=== PATIENT | female | born 1940 | race Caucasian/White ===

== ENCOUNTER 2016-08-07 00:21 | Inpatient (IN) | payer MEDICARE ==
[2016-08-07 00:22] VITALS: BMI 28.3
[2016-08-07] MEDS ORDERED: Sodium Chloride 0.9% 1,000 ML IV ONE ×3 (01:39→05:25)
--- NOTE | 2016-08-07 01:40 | C.PDOC ---
History Of Present Illness Pt presents with severe abdominal pain. After eating, she started to vomit, and "felt something Pop" in her abdomen and started to have sever pain. nausea and vomiting. Time Seen by Provider: 08/07/16 01:39 Chief Complaint (Nursing): Abdominal Pain History Per: Patient, Family History/Exam Limitations: no limitations Onset/Duration Of Symptoms: Hrs Current Symptoms Are (Timing): Worse Context: Other Severity: Severe Pain Scale Rating Of: 8 Location Of Pain/Discomfort: Diffuse Radiation Of Pain To:: Back Quality Of Discomfort: Sharp, "Pain" Associated Symptoms: Nausea, Vomiting. denies: Fever, Chills Exacerbating Factors: None Alleviating Factors: None Last Bowel Movement: Yesterday Recent travel outside of the [place]: No Additional History Per: Family Abnormal Vaginal Bleeding: No Past Medical History Reviewed: Historical Data, Nursing Documentation, Vital Signs Vital Signs: Last Vital Signs Temp 98.4 F 08/07/16 02:00 Pulse 83 08/07/16 03:30 Resp 28 H 08/07/16 03:30 BP 108/73 08/07/16 03:30 Pulse Ox 98 08/07/16 05:31 - Medical History PMH: HTN, Hypercholesterolemia Surgical History: Appendectomy Family History: States: No Known Family Hx - Social History Hx Alcohol Use: Yes Hx Substance Use: No - Immunization History Hx Tetanus Toxoid Vaccination: No Hx Influenza Vaccination: Yes Hx Pneumococcal Vaccination: No Review Of Systems Constitutional: Negative for: Fever, Chills Eyes: Negative for: Vision Change ENT: Negative for: Throat Pain Cardiovascular: Negative for: Chest Pain, Palpitations Respiratory: Negative for: Shortness of Breath Gastrointestinal: Positive for: Nausea, Vomiting, Abdominal Pain Genitourinary: Negative for: Dysuria Musculoskeletal: Negative for: Back Pain Skin: Negative for: Rash, Lesions, Jaundice, Bruising Neurological: Negative for: Weakness Psych: Negative for: Anxiety Physical Exam - Physical Exam Appears: In Acute Distress Skin: Pale Head: Normacephalic Eye(s): bilateral: Normal Inspection Oral Mucosa: Dry Neck: Trachea Midline, Supple Chest: Symmetrical Cardiovascular: Rhythm Regular Respiratory: No Rales, No Rhonchi, No Wheezing Gastrointestinal/Abdominal: Bowel Sounds (dull), Tenderness (diffuse), Guarding , Rebound Rectal: Deferred Back: No CVA Tenderness Extremity: Normal ROM Extremity: Bilateral: Atraumatic, Normal Color And Temperature, Normal ROM Neurological/Psych: Oriented x3, Normal Speech, Normal Cognition ED Course And Treatment - Laboratory Results Result Diagrams: 08/07/16 03:57 08/07/16 01:57 ECG: Interpreted By Me, Viewed By Me ECG Rhythm: Sinus Rhythm (72), Nonspecific Changes O2 Sat by Pulse Oximetry: 98 Pulse Ox Interpretation: Normal - Radiology CXR: Interpreted by Me, Viewed By Me Progress Note: blood work, ivf, morphine, ct scan. 4:15 spoke with surgical garment fitter. will come and see the pt. have call out to dr larios. spoke with dr crane- admit to hospitalist service. spoke with pt and family(hipaa compliant) re diagnosis Critical Care Time - Critical Care Note Total Time (in mins): 35 Documented critical care: time excludes all time spent performing seperately billable procedures. Disposition Discussed With DrRafael: Oleg Russo Comment: accepted the pt on his service and took over the care at 5:15 AM Doctor Will See Patient In The: ED Counseled Patient/Family Regarding: Studies Performed, Diagnosis - Disposition Disposition: HOSPITALIZED Disposition Time: 01:39 Condition: CRITICAL - POA Present On Arrival: Poor Glycemic Control - Clinical Impression Clinical Impression: Abdominal pain, Nausea, Vomiting, Perforated bowel Decision To Admit - Pt Status Changed To: Hospital Disposition Of: Inpatient - Admit Certification Admit to Inpatient:: After my assessment, the patient will require hospitalization for at least two midnights. This is because of the severity of symptoms shown, intensity of services needed, and/or the medical risk in this patient being treated as an outpatient. - InPatient: Physician Admission Certification:: After my assessment, the patient will require hospitalization for at least two midnights. This is because of the severity of symptoms shown, intensity of services needed, and/or the medical risk in this patient being treated as an outpatient. - . Bed Request Type: ICU Admitting Physician: Oleg Russo Patient Diagnosis: Abdominal pain, Nausea, Vomiting, Perforated bowel
[2016-08-07] MEDS ORDERED: Morphine 4 MG/ML VIAL ONE (01:47)
[2016-08-07] MEDS ORDERED: Sodium Chloride 0.9% 1,000 ML ONE (01:48)
[2016-08-07 02:05] LABS: VENOUS BLOOD GAS BASE EXCESS -1.5 mmol/L (0.0-2.0); VENOUS BLOOD GAS PCO2 25 mmHg (40-60); VENOUS BLOOD PH 7.51 (7.32-7.43)
[2016-08-07] MEDS ORDERED: Piperacillin/Tazobact 3.375 gm 100 ML IVPB STA (02:07)
[2016-08-07] MEDS ORDERED: HYDROmorphone 1 mg/ml ISec IVP STA ×2 (02:09→03:29)
[2016-08-07 02:11] LABS: CHLORIDE 107 mmol/L (98-107)
[2016-08-07 02:12] LABS: POTASSIUM 4.7 mmol/L (3.6-5.2); SODIUM 139 mmol/L (132-148)
[2016-08-07] MEDS ORDERED: HYDROmorphone 1 mg/ml ISec ONE (02:12)
[2016-08-07 02:14] LABS: ALB/GLOB RATIO 1.4 (1.0-2.1); ALKALINE PHOSPHATASE 92 U/L (38-126); ALT/SGPT 17 U/L (9-52); AST/SGOT 56 U/L (14-36); BILIRUBIN,TOTAL 2.4 mg/dL (0.2-1.3); BLOOD UREA NITROGEN 45 mg/dL (7-17); CARBON DIOXIDE 19 mmol/L (22-30); GFR AFRICAN-AMERICAN > 60; GLUCOSE,RANDOM 190 mg/dL (65-105)
[2016-08-07 02:15] LABS: CALCIUM 9.7 mg/dl (8.6-10.4)
[2016-08-07] MEDS ORDERED: Iodixanol 320 MG/ML 100 ML BOTTLE IV ONE (02:46)
[2016-08-07 04:03] LABS: BASO % 0.5 % (0.0-2.0); EOS % 0.4 % (0.0-4.0); HEMATOCRIT 46.3 % (34.0-47.0); LYMPH # 0.4 K/uL (1.0-4.3); LYMPH % 21.4 % (20.0-40.0); MEAN CELL VOLUME 94.5 fL (81.0-99.0); MEAN CORPUSCULAR HEMOGLOBIN 31.1 pg (27.0-31.0); MEAN CORPUSCULAR HGB CONC 32.9 g/dL (33.0-37.0); MEAN PLATELET VOLUME 7.5 fL (7.2-11.7); MONO # 0.1 K/uL (0.0-0.8); MONO % 6.9 % (0.0-10.0); NRBC % 0.2 % (0.0-2.0)
[2016-08-07] MEDS ORDERED: Vancomycin 1 GM 1 GM/250 ML BAG IVPB SCH (04:15)
--- NOTE | 2016-08-07 05:04 | CP.PCM.CON ---
<Kendy Klein - Last Filed: 08/07/16 04:56> History of Present Illness - History of Present Illness History of Present Illness: Surgery Consult: Dr. Kenney Pt is a 76F with PMHx of HTN & HLD who presents to with acute abdominal pain that started earlier last night. Pt states she was feeling nauseous after dinner and began to throw up. She attributed her symptoms to possible constipation which she suffers from intermittently. She decided to take some prune juice which did not help, and she felt herself straining to move her bowels. She states she felt a pop and started having severe abdominal pain in her lower abdomen, which became generalized very quickly. She states the pain was 10/10 and has remained at that level. In the ER a CT abdomen/pelvis was obtained and shows free air with probable perforated viscous. Surgery consulted to evaluate. Currently, pt is in bed trying to find a comfortable position. Continues to have severe abdominal pain but denies further episodes of N/V. Denies F/C, chest pain or SOB. PMHx: HTN, HLD PSHx: hysterectomy, cataract surgery SocialHx: former social smoker, denies EtOH/drugs NKDA Review of Systems - Review of Systems All systems: reviewed and no additional remarkable complaints except (as per HPI ) Past Patient History - Infectious Disease Hx of Infectious Diseases: None - Past Medical History & Family History Past Medical History?: Yes - Past Social History Smoking Status: Never Smoked - CARDIAC Hx Hypercholesterolemia: Yes Hx Hypertension: Yes - HEENT Hx HEENT Problems: Yes Hx Glaucoma: Yes (BOTH EYES) - INTEGUMENTARY Hx Dermatological Problems: Yes - PSYCHIATRIC Hx Substance Use: No - SURGICAL HISTORY Hx Appendectomy: Yes - ANESTHESIA Hx Anesthesia: Yes Hx Anesthesia Reactions: No Hx Malignant Hyperthermia: No Meds Allergies/Adverse Reactions: Allergies Allergy/AdvReac Type Severity Reaction Status Date / Time No Known Allergies Allergy Verified 08/07/16 08:20 - Medications Medications: Current Medications Vancomycin HCl (Vancomycin 1gm In Normal Saline Addvantage) 1 gm in 250 mls @ 166.667 mls/hr IVPB STAT MARINA Physical Exam - Constitutional Appears: In Acute Distress - Head Exam Head Exam: ATRAUMATIC, NORMOCEPHALIC - ENT Exam ENT Exam: Mucous Membranes Dry - Respiratory Exam Respiratory Exam: NORMAL BREATHING PATTERN - Cardiovascular Exam Cardiovascular Exam: RRR - GI/Abdominal Exam GI & Abdominal Exam: Distended, Firm, Guarding, Tenderness (generalized ) - Rectal Exam Rectal Exam: Deferred - Extremities Exam Extremities exam: Negative for: tenderness - Neurological Exam Neurological exam: Alert, Oriented x3 - Skin Skin Exam: Dry, Intact, Warm Results - Vital Signs Recent Vital Signs: Last Vital Signs Temp 98.4 F 08/07/16 02:00 Pulse 73 08/07/16 02:00 Resp 24 08/07/16 02:00 BP 100/61 08/07/16 02:00 Pulse Ox 98 08/07/16 04:20 - Labs Result Diagrams: 08/07/16 03:57 08/07/16 01:57 Labs: Laboratory Results - last 24 hr 08/07/16 08/07/16 08/07/16 01:57 01:57 02:00 WBC RBC Hgb Hct MCV MCH MCHC RDW Plt Count MPV Neut % (Auto) Lymph % (Auto) [place] % (Auto) Eos % (Auto) Baso % (Auto) Neut # Lymph # [place] # Eos # Baso # PT 11.5 INR 1.0 APTT 21 pO2 63 H VBG pH 7.51 H VBG pCO2 25 L VBG HCO3 23.7 VBG Total CO2 20.7 L VBG O2 Sat (Calc) 95.3 H VBG Base Excess -1.5 L VBG Potassium 3.1 L Glucose 191 H Lactate 3.2 H Sodium 139 141.0 Potassium 4.7 Chloride 107 109.0 H Carbon Dioxide 19 L Anion Gap 18 BUN 45 H Creatinine 1.0 Est GFR ( Amer) > 60 Est GFR (Non-Af Amer) 54 Random Glucose 190 H Calcium 9.7 Total Bilirubin 2.4 H AST 56 H ALT 17 Alkaline Phosphatase 92 Total Creatine Kinase 126 Troponin I < 0.0120 Total Protein 7.0 Albumin 4.1 Globulin 2.9 Albumin/Globulin Ratio 1.4 Lipase 91 Venous Blood Potassium 3.1 L 08/07/16 03:57 WBC 2.0 L* RBC 4.90 Hgb 15.2 Hct 46.3 MCV 94.5 MCH 31.1 H MCHC 32.9 L RDW 14.0 Plt Count 289 MPV 7.5 Neut % (Auto) 70.8 Lymph % (Auto) 21.4 [place] % (Auto) 6.9 Eos % (Auto) 0.4 Baso % (Auto) 0.5 Neut # 1.4 L Lymph # 0.4 L [place] # 0.1 Eos # 0.0 Baso # 0.0 PT INR APTT pO2 VBG pH VBG pCO2 VBG HCO3 VBG Total CO2 VBG O2 Sat (Calc) VBG Base Excess VBG Potassium Glucose Lactate Sodium Potassium Chloride Carbon Dioxide Anion Gap BUN Creatinine Est GFR ( Amer) Est GFR (Non-Af Amer) Random Glucose Calcium Total Bilirubin AST ALT Alkaline Phosphatase Total Creatine Kinase Troponin I Total Protein Albumin Globulin Albumin/Globulin Ratio Lipase Venous Blood Potassium - Imaging and Cardiology CT scan - abdomen Status: Image reviewed by me Assessment & Plan - Assessment and Plan (Free Text) Assessment: 76F with free air likely secondary to colon perforation Plan: - NPO - IVF, IV ABX, pain management - OR for ex-lap - consent obtained - d/w Dr. Anne Marie Klein, PGY-2 Surgery <Tacho Kenney B - Last Filed: 08/09/16 14:31> Results - Vital Signs Recent Vital Signs: Last Vital Signs Temp 99.1 F 08/08/16 07:10 Pulse 28 L 08/08/16 10:40 Resp 0 L 08/08/16 11:10 BP 34/27 L 08/08/16 10:32 Pulse Ox 17 L 08/08/16 10:40 - Labs Result Diagrams: 08/08/16 09:20 08/08/16 09:20 Attending/Attestation - Attestation I have personally seen and examined this patient.: Yes I have fully participated in the care of the patient.: Yes I have reviewed all pertinent clinical information: Yes Notes (Text): 08/09/16 14:29 Pt was seen and examined at bedside on 08/07/16 Agree with above note and assessment Pt with Acute Abdomen and Possible Colon perforation OR for Exp lap and possible colons resection possible Ostomy Consent NPO, IVF C/w IV antibiotics Plan d.w pt in detail Risk and benefit explained in detail
[2016-08-07] MEDS: Lactated Ringer's 1,000 ML IV SCH ×4 (05:15→22:13)
[2016-08-07] MEDS: Piperacillin/Tazobact 3.375 GM in Sodium Chloride 100 ML IVPB SCH ×3 (05:15→23:21)
[2016-08-07] MEDS ORDERED: HYDROmorphone 0.5 mg/0.5 ml ISec IVP STA (05:24)
--- NOTE | 2016-08-07 06:06 | CP.PCM.HP ---
History of Present Illness - History of Present Illness History of Present Illness: CC: abdominal pain HPI: Patient is a 76yo female PMHx HTN, HLD, glaucoma presents to ER for acute abdominal pain that started earlier that night. Patient ate dinner and started to feel nauseous and had 4-5 episodes of nonbilious but dark colored emesis. Patient reported the pain was >10/10 in intensity and sharp stabbing pain radiating to her back. Patient reported the pain was so intense that she was unable to take in a deep breath because of the pain. At first she believed the pain could have been due to her history of constipation and she drank some prune juice which did not help. She reported feeling a "pop" in her lower abdomen which radiated diffusely and severely. Patient denied headache, dizziness, fever, chills, chest pain, palpitations, SOB, cough, dysuria, hematuria, pain/swelling in her legs bilaterally. PMHx: HTN, HLD, glaucoma PSHx: hysterectomy ALL: NKDA Medications: pls see chart FamHx: denies Social Hx: denies EtOH, tobacco, drugs. 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 Admits to severe abdominal pain, nausea, vomiting, constipation, dry mouth Present on Admission - Present on Admission Any Indicators Present on Admission: No Review of Systems - Constitutional Constitutional: As Per HPI. absent: Chills, Fever - EENT Eyes: As Per HPI. absent: Change in Vision Ears: As Per HPI. absent: Dizziness Nose/Mouth/Throat: As Per HPI, Dry Mouth. absent: Dysphagia, Sore Throat - Cardiovascular Cardiovascular: As Per HPI. absent: Chest Pain, Dyspnea, Dyspnea on Exertion, Edema - Respiratory Respiratory: As Per HPI. absent: Cough, Dyspnea, Chest Congestion - Gastrointestinal Gastrointestinal: As Per HPI, Abdominal Pain, Coffee Ground Emesis, Nausea, Vomiting. absent: Constipation, Diarrhea - Genitourinary Genitourinary: As Per HPI. absent: Dysuria, Pyuria - Musculoskeletal Musculoskeletal: As Per HPI. absent: Back Pain, Numbness, Tingling - Integumentary Integumentary: As Per HPI. absent: Lesions, Rash - Neurological Neurological: As Per HPI. absent: Dizziness, Numbness, Weakness - Psychiatric Psychiatric: As Per HPI. absent: Anxiety, Depression - Endocrine Endocrine: As Per HPI. absent: Palpitations, Polydipsia, Polyphagia, Polyuria - Hematologic/Lymphatic Hematologic: As Per HPI. absent: Easy Bleeding, Easy Bruising, Lymphadenopathy Past Patient History - Infectious Disease Hx of Infectious Diseases: None - Past Medical History & Family History Past Medical History?: Yes - Past Social History Smoking Status: Never Smoked - CARDIAC Hx Hypercholesterolemia: Yes Hx Hypertension: Yes - HEENT Hx HEENT Problems: Yes Hx Glaucoma: Yes (BOTH EYES) - INTEGUMENTARY Hx Dermatological Problems: Yes - PSYCHIATRIC Hx Substance Use: No - SURGICAL HISTORY Hx Appendectomy: Yes - ANESTHESIA Hx Anesthesia: Yes Hx Anesthesia Reactions: No Hx Malignant Hyperthermia: No Meds Allergies/Adverse Reactions: Allergies Allergy/AdvReac Type Severity Reaction Status Date / Time No Known Allergies Allergy Unverified 08/07/16 00:48 Physical Exam - Constitutional Appears: In Acute Distress - Head Exam Head Exam: ATRAUMATIC, NORMAL INSPECTION, NORMOCEPHALIC - Eye Exam Eye Exam: Normal appearance. absent: Conjunctival injection, Scleral icterus - ENT Exam ENT Exam: Mucous Membranes Dry - Neck Exam Neck exam: Positive for: Normal Inspection. Negative for: Lymphadenopathy, Tenderness - Respiratory Exam Respiratory Exam: Clear to Auscultation Bilateral, NORMAL BREATHING PATTERN. absent: Accessory Muscle Use, Rales, Rhonchi, Wheezes, Respiratory Distress - Cardiovascular Exam Cardiovascular Exam: REGULAR RHYTHM, RRR, +S1, +S2 - GI/Abdominal Exam GI & Abdominal Exam: Distended, Firm, Guarding, Hypoactive Bowel Sounds, Tenderness (diffuse to light palpation) - Rectal Exam Rectal Exam: Deferred - Extremities Exam Extremities exam: Positive for: normal capillary refill, normal inspection, pedal pulses present. Negative for: pedal edema - Neurological Exam Neurological exam: Alert, Oriented x3 - Psychiatric Exam Psychiatric exam: Normal Affect, Normal Mood - Skin Skin Exam: Dry, Intact, Normal Color, Warm Results - Vital Signs Recent Vital Signs: Last Vital Signs Temp 98.4 F 08/07/16 02:00 Pulse 83 08/07/16 03:30 Resp 28 H 08/07/16 03:30 BP 108/73 08/07/16 03:30 Pulse Ox 98 08/07/16 05:58 - Labs Result Diagrams: 08/07/16 03:57 08/07/16 01:57 Assessment & Plan - Assessment and Plan (Free Text) Assessment: 76yo female PMHx HTN, HLD, glaucoma presents to ER for acute abdominal pain that started earlier that night Plan: Acute abdomen -CT abdomen: free air suggesting viscus perforation; nonspecific colitis and/or diverticulitis of descending colon and sigmoid colon. Nonspecific enteritis. Cholelithiasis. -Surgery Dr. Kenney on board -NPO -LR @ 125cc/hr -Flagyl 500mg IVPB Q8 -Zosyn 3.375 ivpb q6 -Morphine 2mg ivp q6 prn pain moderate -Zofran 4mg ivp q6h prn nausea -Protonix 40mg ivp daily -Dilaudid 1.5mg ivp q3 prn pain Hx of HTN -hold home meds Hx of hyperlipidemia -hold home meds PPX -NPO -Protonix 40mg ivp daily -SCDs Case discussed with Dr. Rafaela Norwood PGY1
[2016-08-07] MEDS ORDERED: Albumin Human 25% (12.5 gm/50 ml) IV ONE ×5 (06:07→20:27)
[2016-08-07] MEDS ORDERED: Lactated Ringer's 1,000 ML IV SCH ×2 (06:15→21:26)
[2016-08-07] MEDS ORDERED: Vancomycin 1 GM 1 GM/250 ML BAG IVPB ONE (06:18)
[2016-08-07] MEDS: metroNIDAZOLE IV 500 mg/100 ml 500 MG/100 ML BAG IVPB SCH ×3 (07:30→22:05)
[2016-08-07 08:12] LABS: RBC URINE 19 /hpf (0-3); URINE BILIRUBIN 1+ (NEGATIVE); URINE COLOR Amber (YELLOW); URINE GLUCOSE (UA) NORMAL (Normal); URINE KETONE TRACE mg/dL (NEGATIVE); URINE LEUKOCYTE ESTERASE NEG Leu/uL (Negative); URINE PROTEIN NEGATIVE (NEGATIVE); WBC URINE 1 /hpf (0-5)
--- NOTE | 2016-08-07 08:22 | CT ---
PROCEDURE: CT Abdomen and Pelvis with intravenous contrast HISTORY: Abdominal pain COMPARISON: None. TECHNIQUE: Multiple contiguous axial images were performed through the abdomen and pelvis with intravenous contrast. Subsequently, sagittal and coronal reformatted images were obtained. Radiation dose: Total exam DLP = 555 mGy-cm. This CT exam was performed using one or more of the following dose reduction techniques: Automated exposure control, adjustment of the mA and/or kV according to patient size, and/or use of iterative reconstruction technique. FINDINGS: LOWER THORAX: Moderate-sized hiatal hernia. Mild bibasilar ground-glass opacities with associated atelectasis. Trace pleural effusions bilaterally. LIVER: Scattered hepatic hypodensities for example in the periphery of the right hepatic lobe there is a 1.2 centimeter hypodensity demonstrating a Hounsfield unit attenuation of 24, indeterminate. Correlation with multiphasic CT may be helpful if clinically indicated. GALLBLADDER AND BILE DUCTS: Cholelithiasis with multiple prominent calculi noted for example a prominent calculus measures up to 2 centimeters. PANCREAS: Mild prominence of the pancreatic duct. SPLEEN: Unremarkable. ADRENALS: Unremarkable. No mass. KIDNEYS AND URETERS: Prominent left renal parapelvic cysts and to a lesser extent right parapelvic cysts. Additional 8 millimeter hypoattenuated lesion cyst in the upper pole of the left kidney which may also represent a cyst. VASCULATURE: Moderate aortic atherosclerosis. BOWEL: Colonic diverticulosis. Mucosal thickening of the transverse colon, descending colon, sigmoid colon, most prominent at the level of the sigmoid colon. These findings may represent a colitis versus diverticulitis. In addition, there is mild segmental mucosal thickening and dilatation of small bowel loops. Prominent fecal retention in the right hemicolon. APPENDIX: No findings to suggest acute appendicitis. Appendix not definitively visualized. PERITONEUM: Free air specially in the upper abdomen scattered in the mesenteric planes in the mid low abdomen consistent with viscus perforation, origin uncertain. Small amount of free fluid in the abdomen and mesenteric planes. Small amount of free fluid in the pelvis. LYMPH NODES: Unremarkable. No enlarged lymph nodes. BLADDER: Unremarkable. REPRODUCTIVE: Prior hysterectomy. BONES: Diffuse osteopenia. Moderate degenerative changes of the spine. Sclerosis of the right SI joint. Retrolisthesis of L2 on L3 as well as anterolisthesis of L4 on L5. Multilevel posterior disc osteophyte complexes. Endplate sclerosis at the inferior endplate of the L2 vertebral body. OTHER FINDINGS: None. IMPRESSION: Free intraperitoneal abdominal air suggesting viscus perforation. Nonspecific colitis and or diverticulitis especially of the descending colon and sigmoid colon. Nonspecific enteritis. Cholelithiasis. Additional findings as above. These findings were preliminarily reported at 4:08 a.m. on 08/07/2016 by rodrigo Lange from [facility]. These critical findings were relayed to Dr. Patricio at 4:43 a.m. on 08/07/[address] Lange.
[2016-08-07 08:33] LABS: URINE BLOOD 1+ (NEGATIVE)
--- NOTE | 2016-08-07 10:07 | RAD ---
HISTORY: NGT Eval COMPARISON: Comparison made with prior CT scan abdomen pelvis 05/07/2016 at approximately 3 a.m.. FINDINGS: LUNGS: In situ NGT, the distal aspect of which these came and coiled upon itself with tip oriented superiorly. This likely is located within a large hiatal hernia which is seen to better advantage on prior CT scan. This NGT must be repositioned.Note that operating room nurse Ramiro informed of these findings at approximately 10:03 a.m. with written down and read back verification. Poor inspiration with low lung volumes, crowded bronchovascular markings and mild bibasilar atelectasis. Tiny effusions not excluded. Note that the lung apices are partially obscured by overlying facial soft tissue and mandible artifact. PLEURA: No apparent pneumothorax CARDIOVASCULAR: Heart appears enlarged. OSSEOUS STRUCTURES: No significant abnormalities. VISUALIZED UPPER ABDOMEN: Normal. OTHER FINDINGS: None. IMPRESSION: In situ NGT, the distal aspect of which these came and coiled upon itself with tip oriented superiorly. This likely is located within a large hiatal hernia which is seen to better advantage on prior CT scan. This NGT must be repositioned. Note that operating room nurse Ramiro informed of these findings at approximately 10:03 a.m. with written down and read back verification. Poor inspiration with low lung volumes, crowded bronchovascular markings and mild bibasilar atelectasis. Tiny effusions not excluded. Note that the lung apices are partially obscured by overlying facial soft tissue and mandible artifact.
[2016-08-07] MEDS ORDERED: Midazolam 2 MG/2 ML VIAL ONE ×2 (10:11→11:27)
[2016-08-07] MEDS ORDERED: Propofol 10 mg/ml Inj (20 ML) ONE (10:12)
[2016-08-07] MEDS ORDERED: ePHEDrine 50 mg/ml Inj ONE (10:14)
[2016-08-07] MEDS ORDERED: Succinylcholine Chloride 20 mg/ml Syr (5 ml) IV ONE (10:18)
[2016-08-07] MEDS ORDERED: Bupivacaine/Epi 0.25%-1:200,000 10 ml PF inj IJ ONE ×4 (10:18→10:19)
[2016-08-07] MEDS ORDERED: Rocuronium 10 mg/ml (5 ml) ONE ×2 (10:18→13:02)
[2016-08-07] MEDS ORDERED: Lactated Ringer's 1,000 ML IV ONE ×7 (10:20→23:51)
[2016-08-07] MEDS ORDERED: Bupivacaine HCl 0.5% PF (10 ml) Inj ONE (10:22)
[2016-08-07] MEDS ORDERED: Etomidate 20 mg/10ml Inj IV ONE (10:24)
[2016-08-07] MEDS ORDERED: Phenylephrine 10 mg/ml Inj ONE ×2 (11:23)
[2016-08-07] MEDS ORDERED: Calcium Chloride 1000 mg/10 ml Syringe IV ONE ×2 (11:35→22:03)
[2016-08-07] MEDS ORDERED: BUPIVACAINE 0.125%/0.9% NACL 600 ML IJ ONE (12:00)
[2016-08-07] MEDS ORDERED: Sodium Bicarbonate (8.4%) 50 Meq Syringe ONE (12:12)
--- NOTE | 2016-08-07 13:41 | PCM.SURG1 ---
Surgeon's Initial Post Op Note - Surgeon's Notes Surgeon: Dr Kenney Mail Order Biller: Dr Domingo PGY2, Dr Klein PGY2, Becca QUINONES Type of Anesthesia: General Endo Anesthesia Administered By: Dr Lemus Pre-Operative Diagnosis: perforated viscus Operative Findings: feculent peritonitis. perforated sigmoid colon Post-Operative Diagnosis: as above Operation Performed: Exploratory laparotomy. Abdominal washout. Flaco's sigmoid colectomy with end colostomy. On-Q catheter insertion Specimen/Specimens Removed: peritoneal fluid culture. sigmoid colon Estimated Blood Loss: EBL {In ML}: 100 Blood Products Given: N/A Drains Used: Adria (On Q catheter), Ostomy Device Post-Op Condition: Fair Date of Surgery/Procedure: 08/07/16 Time of Surgery/Procedure: 13:43
--- NOTE | 2016-08-07 14:07 | CP.PCM.PN ---
Subjective - Date & Time of Evaluation Date of Evaluation: 08/07/16 Time of Evaluation: 14:00 - Subjective Subjective: Day-Time Hospitalist Follow-up: Peritonitis; Perforated Sigmoid Colon s/p POD 0 Exploratory Laparotomy. Codi's sigmoid colectomy with end colostomy. Q- catheter insertion Patient seen, examined s/p OR for exploratory laparotomy and codi's sigmoid colectomy with end colostomy with Q- catheter insertion. Patient is currently sedated and on pressor. Unable to review ROS given clinical state. Objective - Vital Signs/Intake and Output Vital Signs (last 24 hours): Temp Pulse Resp BP Pulse Ox 98.1 F 81 21 95/59 L 91 L 08/07/16 07:45 08/07/16 09:21 08/07/16 09:21 08/07/16 09:24 08/07/16 09:21 Intake and Output: 08/07/16 08/07/16 06:59 18:59 Output Total 55 210 Balance -55 -210 - Medications Medications: Current Medications Hydromorphone HCl (Dilaudid) 1.5 mg IVP Q3H PRN PRN Reason: Pain, moderate (4-7) Vancomycin HCl (Vancomycin 1gm In Normal Saline Addvantage) 1 gm in 250 mls @ 166.667 mls/hr IVPB STAT [facility] Last Admin: 08/07/16 04:30 Dose: 166.667 mls/hr Lactated Ringer's (Lactated Ringer's) 1,000 mls @ 125 mls/hr IV .Q8H [facility] Last Admin: 08/07/16 05:15 Dose: 125 mls/hr Piperacillin Sod/Tazobactam (Sod 3.375 gm/ Sodium Chloride) 100 mls @ 200 mls/ hr IVPB Q6H [facility] Last Admin: 08/07/16 05:15 Dose: 200 mls/hr Metronidazole (Flagyl) 500 mg in 100 mls @ 100 mls/hr IVPB Q8 [facility] Last Admin: 08/07/16 07:30 Dose: 100 mls/hr BUPIVACAINE 0.125%/0.9% NACL (Bupivacaine-Ns 0.125% On-Q [employer] Booker) 600 mls @ 4 mls/ hr IJ ONCE ONE Stop: 08/13/16 17:59 Norepinephrine Bitartrate 4 mg (/ Sodium Chloride) 254 mls @ 15.24 mls/hr IV .[id number] PRN; Protocol; 4 MCG/MIN PRN Reason: TITRATE PER MD ORDER Propofol (Diprivan) 100 mls @ 14.288 mls/hr IV .Q7H [facility]INA; 35 MCG/KG/MIN PRN Reason: Protocol Morphine Sulfate (Morphine) 2 mg IVP Q6H PRN PRN Reason: Pain, moderate (4-7) Ondansetron HCl (Zofran Inj) 4 mg IVP Q4H PRN PRN Reason: Nausea/Vomiting Ondansetron HCl (Zofran Inj) 4 mg IVP Q6H PRN PRN Reason: Nausea/Vomiting Pantoprazole Sodium (Protonix Inj) 40 mg IVP DAILY [facility] Pantoprazole Sodium (Protonix Inj) 40 mg IVP DAILY [facility] - Labs Labs: PT 11.5 SECONDS (9.7-12.2) 08/07/16 01:57 INR 1.0 08/07/16 01:57 APTT 21 SECONDS (21-34) 08/07/16 01:57 - Constitutional Appears: Older Than Stated Age - Head Exam Head Exam: NORMAL INSPECTION Additional comments: intubated, mcpherson in place, a-line, sedated - ENT Exam ENT Exam: Mucous Membranes Dry - Respiratory Exam Additional comments: on vent - Cardiovascular Exam Cardiovascular Exam: Tachycardia, +S1, +S2 - GI/Abdominal Exam GI & Abdominal Exam: Soft, Hypoactive Bowel Sounds. absent: Hernia Additional comments: midline dressing (dressing, clean, dry intact) Jpeg- 100 cc: serosaginous over right lower quadrant LLQ: ostomy appears pink Connected to Q cathter at bedside - Extremities Exam Extremities Exam: absent: Pedal Edema, Tenderness - Neurological Exam Additional comments: sedated - Skin Skin Exam: Dry, Normal Color, Warm Additional comments: tattoos Assessment and Plan (1) Peritonitis (acute) generalized Assessment & Plan: CT abdomen/pelvis (08/07/16): free air suggesting viscus perforation; nonspecific colitis and/or diverticulitis of descending colon and sigmoid colon. Nonspecific enteritis. Cholelithiasis. -Surgery Dr. Kenney on board-->help appreciated -Admitted to ICU following OR this morning -s/p POD 0 Exploratory Laparotomy. Codi's sigmoid colectomy with end colostomy. Q- catheter insertion -On pressor, sedation, pain prn, intubated -Flagyl 500mg IVPB Q8h -Zosyn 3.375 ivpb q6 -Zofran 4mg ivp q6h prn nausea -Protonix 40mg ivp daily -Dilaudid 1.5mg ivp q3 prn pain Status: Acute (2) Metabolic acidosis Assessment & Plan: likely secondary to peritionitis pending repeat ABG post- procedure Status: Acute (3) Hypertension Assessment & Plan: hold anti-hypertensive Status: Chronic (4) Hyperlipidemia Assessment & Plan: hold PO meds Status: Chronic (5) Prophylactic measure Assessment & Plan: off anticoagulation status post OR this morning; per discretion of surgery to determine restart of antiocoagulation Protonix 40mg IV q daily Sedation Intubated on Pressor SCDS b/l Status: Acute
[2016-08-07] MEDS ORDERED: Sodium Chloride 0.9% 500 ML IV ONE (14:09)
[2016-08-07 14:25] LABS: ABG MECHANICAL RATE 22; ATERIAL BLOOD GAS PEEP 5; DRAW SITE A LINE
[2016-08-07] MEDS: Propofol 10 mg/ml 1,000 MG/100 ML VIAL IV SCH ×2 (14:30→21:10)
--- NOTE | 2016-08-07 14:50 | RAD ---
HISTORY: ET TUbe Eval COMPARISON: Comparison is made to the previous same-day exam FINDINGS: LUNGS: Patchy opacities at the right lung are again seen. The ET tube is seen at appropriate position. PLEURA: No significant pleural effusion identified, no pneumothorax apparent. CARDIOVASCULAR: Normal. OSSEOUS STRUCTURES: No significant abnormalities. VISUALIZED UPPER ABDOMEN: The NG tube ending at the distal esophagus. OTHER FINDINGS: Right jugular central line seen in place. IMPRESSION: Appropriate position of the ETT. High position of the NG tube. Otherwise no interval change.
[2016-08-07 15:02] LABS: BASO % 0.4 % (0.0-2.0); EOS % 0.1 % (0.0-4.0); HEMATOCRIT 39.9 % (34.0-47.0); LYMPH # 0.7 K/uL (1.0-4.3); MEAN CORPUSCULAR HEMOGLOBIN 31.2 pg (27.0-31.0); MEAN CORPUSCULAR HGB CONC 32.5 g/dL (33.0-37.0); MEAN PLATELET VOLUME 8.2 fL (7.2-11.7); MONO # 0.1 K/uL (0.0-0.8); MONO % 4.1 % (0.0-10.0); NRBC % 0.2 % (0.0-2.0)
[2016-08-07 15:04] LABS: INR 1.3; POTASSIUM 3.2 mmol/L (3.6-5.2)
[2016-08-07 15:06] LABS: ALB/GLOB RATIO 0.9 (1.0-2.1); BILIRUBIN,TOTAL 1.7 mg/dL (0.2-1.3); TOTAL PROTEIN 3.3 g/dL (6.3-8.3)
[2016-08-07 15:07] LABS: CALCIUM 7.8 mg/dl (8.6-10.4); MAGNESIUM 1.4 mg/dL (1.6-2.3); PHOSPHOROUS 4.1 mg/dL (2.5-4.5)
[2016-08-07 15:12] LABS: WHITE BLOOD COUNT 1.7 K/uL (4.8-10.8)
[2016-08-07] MEDS ORDERED: DOPamine 400mg/250ml D5W 400 MG/250 ML BAG IV PRN (15:59)
[2016-08-07] MEDS ORDERED: Sodium Bicarbonate (8.4%) 50 Meq Syringe IVP SCH (16:00)
[2016-08-07] MEDS: Sodium Chloride 0.9% 1,000 ML IV SCH ×6 (16:15→21:30)
[2016-08-07] MEDS: Phenylephrine 30 MG in Sodium Chloride 0.9% 250 ML IV PRN ×3 (16:20→22:02)
--- NOTE | 2016-08-07 17:03 | CP.PCM.CON ---
<Golden Blackburn - Last Filed: 08/07/16 17:38> History of Present Illness - History of Present Illness History of Present Illness: Critical Care Consultation Note Dr. Martinez CC: Abdominal Pain HPI: This is a 76yo female with a PMH significant for HTN, HLD, and glaucoma presenting for critical care evaluation s/p exploratory laparotomy for perforated viscous. The patient notes that she ate dinner and started to feel nauseous and had 4-5 episodes of nonbilious but dark colored emesis following the meal. There was also intense pain in addition to the vomiting. The patient subsequently reports feeling a "pop" sensation around 1:30am this morning (08/07/16). The patient presented to the ED and was hydrated with 4L of normal saline. The patient was found to have a perforated sigmoid intraoperatively. The patient received an additional 4L during the surgery. During the intubation, the patient was found to have dark colored material around her vocal cords. FOllowing the surgery, anesthesia noted rhonchi and abnormal breath sounds on the right. Aspiration pneumonia was suspected. Blood gas analysis revealed a mixed acidosis. The patient was given a amp of bicarbonate and started on phenylephrine for pressure support. The patient was stabilized and transfered to the ICU. PMHx: HTN, HLD, glaucoma PSHx: hysterectomy ALL: NKDA Medications: pls see chart FamHx: denies Social Hx: denies EtOH, tobacco, drugs. 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 Review of Systems - Review of Systems Systems not reviewed;Unavailable: Acuity of Condition Past Patient History - Infectious Disease Hx of Infectious Diseases: None - Past Medical History & Family History Past Medical History?: Yes - Past Social History Smoking Status: Never Smoked - CARDIAC Hx Hypercholesterolemia: Yes Hx Hypertension: Yes - PULMONARY Hx Respiratory Disorders: No - NEUROLOGICAL Hx Neurological Disorder: No - HEENT Hx HEENT Problems: Yes Hx Glaucoma: Yes (BOTH EYES) - RENAL Hx Chronic Kidney Disease: No - ENDOCRINE/METABOLIC Hx Endocrine Disorders: No - HEMATOLOGICAL/ONCOLOGICAL Hx Blood Disorders: No - INTEGUMENTARY Hx Dermatological Problems: No - MUSCULOSKELETAL/RHEUMATOLOGICAL Hx Musculoskeletal Disorders: No Hx Falls: No - GASTROINTESTINAL Hx Gastrointestinal Disorders: No - GENITOURINARY/GYNECOLOGICAL Hx Genitourinary Disorders: No - PSYCHIATRIC Hx Psychophysiologic Disorder: No Hx Substance Use: No - SURGICAL HISTORY Hx Appendectomy: Yes Hx Hysterectomy: Yes - ANESTHESIA Hx Anesthesia: Yes Hx Anesthesia Reactions: No Hx Malignant Hyperthermia: No Meds Allergies/Adverse Reactions: Allergies Allergy/AdvReac Type Severity Reaction Status Date / Time No Known Allergies Allergy Verified 08/07/16 08:20 - Medications Medications: Current Medications Hydromorphone HCl (Dilaudid) 1.5 mg IVP Q3H PRN PRN Reason: Pain, moderate (4-7) Vancomycin HCl (Vancomycin 1gm In Normal Saline Addvantage) 1 gm in 250 mls @ 166.667 mls/hr IVPB STAT [facility] Last Admin: 08/07/16 04:30 Dose: 166.667 mls/hr Lactated Ringer's (Lactated Ringer's) 1,000 mls @ 125 mls/hr IV .Q8H [facility] Last Admin: 08/07/16 16:06 Dose: Not Given Piperacillin Sod/Tazobactam (Sod 3.375 gm/ Sodium Chloride) 100 mls @ 200 mls/ hr IVPB Q6H [facility] Last Admin: 08/07/16 05:15 Dose: 200 mls/hr Metronidazole (Flagyl) 500 mg in 100 mls @ 100 mls/hr IVPB Q8 [facility] Last Admin: 08/07/16 16:23 Dose: 100 mls/hr BUPIVACAINE 0.125%/0.9% NACL (Bupivacaine-Ns 0.125% On-Q [employer] Supervisor) 600 mls @ 4 mls/ hr IJ ONCE ONE Stop: 08/13/16 17:59 Norepinephrine Bitartrate 4 mg (/ Sodium Chloride) 254 mls @ 15.24 mls/hr IV .[id number] PRN; Protocol; 4 MCG/MIN PRN Reason: TITRATE PER MD ORDER Last Titration: 08/07/16 16:14 Dose: 20 mcg/min, 76.2 mls/hr Propofol (Diprivan) 1,000 mg in 100 mls @ 14.288 mls/hr IV .Q7H MAR[facility]; 35 MCG/KG/ MIN PRN Reason: Protocol Last Admin: 08/07/16 14:30 Dose: 30 mcg/kg/min, 12.247 mls/hr Sodium Chloride (Sodium Chloride 0.9%) 1,000 mls @ 999 mls/hr IV .Q1H1M [facility] Last Admin: 08/07/16 16:15 Dose: 999 mls/hr Phenylephrine HCl 30 mg/ (Sodium Chloride) 253 mls @ 10.12 mls/hr IV .Q24H PRN ; Protocol; 20 MCG/MIN PRN Reason: TITRATE PER MD ORDER Last Admin: 08/07/16 16:20 Dose: 180 mcg/min, 91.08 mls/hr Morphine Sulfate (Morphine) 2 mg IVP Q6H PRN PRN Reason: Pain, moderate (4-7) Ondansetron HCl (Zofran Inj) 4 mg IVP Q4H PRN PRN Reason: Nausea/Vomiting Ondansetron HCl (Zofran Inj) 4 mg IVP Q6H PRN PRN Reason: Nausea/Vomiting Pantoprazole Sodium (Protonix Inj) 40 mg IVP DAILY [facility] Pantoprazole Sodium (Protonix Inj) 40 mg IVP DAILY [facility] Pneumococcal Polyvalent Vaccine (Pneumovax 23 Vaccine) 0.5 ml IM .ONCE ONE Stop: 08/10/16 16:01 Sodium Bicarbonate (Sodium Bicarbonate (8.4%) 50 Meq Syringe) 50 meq IVP Q5MIN [facility]INA Stop: 08/08/16 16:01 Last Admin: 08/07/16 16:16 Dose: 50 meq Physical Exam - Constitutional Appears: Toxic - Head Exam Head Exam: ATRAUMATIC Additional comments: ET Tube in Place - ENT Exam ENT Exam: Mucous Membranes Moist - Neck Exam Neck exam: Positive for: Normal Inspection - Respiratory Exam Respiratory Exam: Decreased Breath Sounds - Cardiovascular Exam Cardiovascular Exam: Tachycardia - GI/Abdominal Exam GI & Abdominal Exam: absent: Normal Bowel Sounds - Skin Skin Exam: Dry, Intact Results - Vital Signs Recent Vital Signs: Last Vital Signs Temp 95.1 F L 08/07/16 14:59 Pulse 99 H 08/07/16 16:38 Resp 22 08/07/16 16:38 BP 101/64 08/07/16 16:38 Pulse Ox 100 08/07/16 16:38 - Labs Result Diagrams: 08/07/16 14:45 08/07/16 14:45 Labs: Laboratory Results - last 24 hr 08/07/16 08/07/16 08/07/16 06:24 07:05 11:50 WBC RBC Hgb Hct MCV MCH MCHC RDW Plt Count MPV Neut % (Auto) Lymph % (Auto) [place] % (Auto) Eos % (Auto) Baso % (Auto) Neut # Lymph # [place] # Eos # Baso # Differential Comment PT INR APTT Puncture Site Na pCO2 46 H pO2 91 HCO3 16.3 L ABG pH 7.18 L* ABG Total CO2 18.6 L ABG O2 Saturation 97.3 ABG Base Excess -11.0 L Jesse Test Na ABG Potassium 3.3 L A-a O2 Difference Respiratory Index Sodium 141.0 Chloride 113.0 H Glucose 125 H Lactate 4.2 H* Mechanical Rate FiO2 Tidal Volume PEEP Crit Value Called To Jennifer baires rn Crit Value Called By Toi boyd rt Crit Value Read Back Y Blood Gas Notified Time 1200 Potassium Carbon Dioxide Anion Gap BUN Creatinine Est GFR ( Amer) Est GFR (Non-Af Amer) Random Glucose Calcium Phosphorus Magnesium Total Bilirubin AST ALT Alkaline Phosphatase Total Protein Albumin Globulin Albumin/Globulin Ratio Arterial Blood Potassium 3.3 L Urine Color Margie Urine Clarity Clear Urine pH 5.0 Ur Specific [place] 1.046 H Urine Protein Negative Urine Glucose (UA) Normal Urine Ketones Trace Urine Blood 1+ H Urine Nitrate Negative Urine Bilirubin 1+ H Urine Urobilinogen 2.0 H Ur Leukocyte Esterase Neg Urine WBC (Auto) 1 Urine RBC (Auto) 19 H Ur Squamous Epith Cells 1 Blood Type A POSITIVE Blood Type Confirm A POSITIVE Antibody Screen Negative 08/07/16 08/07/16 08/07/16 14:21 14:45 14:45 WBC 1.7 L* RBC 4.16 Hgb 13.0 D Hct 39.9 MCV 96.0 MCH 31.2 H MCHC 32.5 L RDW 14.0 Plt Count 220 MPV 8.2 Neut % (Auto) 55.4 Lymph % (Auto) 40.0 [place] % (Auto) 4.1 Eos % (Auto) 0.1 Baso % (Auto) 0.4 Neut # 1.0 L Lymph # 0.7 L [place] # 0.1 Eos # 0.0 Baso # 0.0 Differential Comment PT 15.0 H INR 1.3 APTT 37 H D Puncture Site A line pCO2 21 L pO2 138 H HCO3 13.5 L ABG pH 7.28 L ABG Total CO2 10.5 L ABG O2 Saturation 98.9 H ABG Base Excess -14.7 L Jesse Test Na ABG Potassium 1.6 L* A-a O2 Difference 549.0 Respiratory Index 4.0 Sodium 150.0 H Chloride 128.0 H Glucose 66 Lactate 2.0 Mechanical Rate 22 FiO2 100.0 Tidal Volume 510 PEEP 5 Crit Value Called To Dr martinez Crit Value Called By Kizzy bolden librarian helper Crit Value Read Back Y Blood Gas Notified Time 1425 Potassium Carbon Dioxide Anion Gap BUN Creatinine Est GFR ( Amer) Est GFR (Non-Af Amer) Random Glucose Calcium Phosphorus Magnesium Total Bilirubin AST ALT Alkaline Phosphatase Total Protein Albumin Globulin Albumin/Globulin Ratio Arterial Blood Potassium 1.6 L* Urine Color Urine Clarity Urine pH Ur Specific [place] Urine Protein Urine Glucose (UA) Urine Ketones Urine Blood Urine Nitrate Urine Bilirubin Urine Urobilinogen Ur Leukocyte Esterase Urine WBC (Auto) Urine RBC (Auto) Ur Squamous Epith Cells Blood Type Blood Type Confirm Antibody Screen 08/07/16 14:45 WBC RBC Hgb Hct MCV MCH MCHC RDW Plt Count MPV Neut % (Auto) Lymph % (Auto) [place] % (Auto) Eos % (Auto) Baso % (Auto) Neut # Lymph # [place] # Eos # Baso # Differential Comment PT INR APTT Puncture Site pCO2 pO2 HCO3 ABG pH ABG Total CO2 ABG O2 Saturation ABG Base Excess Jesse Test ABG Potassium A-a O2 Difference Respiratory Index Sodium 138 Chloride 110 H Glucose Lactate Mechanical Rate FiO2 Tidal Volume PEEP Crit Value Called To Crit Value Called By Crit Value Read Back Blood Gas Notified Time Potassium 3.2 L Carbon Dioxide 18 L Anion Gap 13 BUN 41 H Creatinine 1.1 Est GFR ( Amer) 59 Est GFR (Non-Af Amer) 49 Random Glucose 111 H Calcium 7.8 L Phosphorus 4.1 Magnesium 1.4 L Total Bilirubin 1.7 H AST 37 H D ALT 37 Alkaline Phosphatase 132 H D Total Protein 3.3 L Albumin 1.6 L D Globulin 1.7 L Albumin/Globulin Ratio 0.9 L Arterial Blood Potassium Urine Color Urine Clarity Urine pH Ur Specific [place] Urine Protein Urine Glucose (UA) Urine Ketones Urine Blood Urine Nitrate Urine Bilirubin Urine Urobilinogen Ur Leukocyte Esterase Urine WBC (Auto) Urine RBC (Auto) Ur Squamous Epith Cells Blood Type Blood Type Confirm Antibody Screen Assessment & Plan - Assessment and Plan (Free Text) Plan: Patient Status: -Critical Neuro: -Intubated and sedated Cardiovascular: -Pressuer support with levophed, phenylephrine, and dopamine -1 L fluid bolus -continuous cardiac monitoring -A-line in place -TLC in place Pulmonary: -Intubated -Aspiration Pneumonia -Imaging: : 08/07/16 CXR- Appropriate position of the ETT. High position of the NG tube. Otherwise no interval change. : 08/07/16 CXR- In situ NGT, the distal aspect of which these came and coiled upon itself with tip oriented superiorly. This likely is located within a large hiatal hernia which is seen to better advantage on prior CT scan. This NGT must be repositioned. Note that operating room nurse Ramiro informed of these findings at approximately 10:03 a.m. with written down and read back verification. Poor inspiration with low lung volumes, crowded bronchovascular markings and mild bibasilar atelectasis. Tiny effusions not excluded. Note that the lung apices are partially obscured by overlying facial soft tissue and mandible artifact. -ABG: : 08/07/16- CO2 19 / O2 94 / HCO3 13.1 / pH 7.29 : 08/07/16- CO2 21 / O2 138 / HCO3 13.5 / pH 7.28 : 08/07/16- CO2 46 / O2 91 / HCO3 16.3 / pH 7.18 Gastrointestinal: -NPO -S/P ex lap for perf viscous -Pain management and diet as per surgical team Endocrine: -No issues Renal: -No issues Genitourinary: -monitor I&Os -Gee Musculoskeletal: -No acute issues Hematology/Oncology: -No issues Infectious Disease: -Code sepsis called at 15:54 -1L fluid challenge performed -Patient previously on Levophed and Phenylephrine and dopamine -Repeat lactate ordered -Antibiotics given -Zosyn, Flagyl, Vanco GI Prophylaxis: Not indicated at this time DVT Prophylaxis: DVT Ppx Case Discussed with Dr. Vitaliy Blackburn PGY1 - Date & Time Date: 08/07/16 Time: 19:05 <Tommy Martinez S - Last Filed: 08/07/16 19:07> Meds - Medications Medications: Current Medications Hydromorphone HCl (Dilaudid) 1.5 mg IVP Q3H PRN PRN Reason: Pain, moderate (4-7) Lactated Ringer's (Lactated Ringer's) 1,000 mls @ 125 mls/hr IV .Q8H [facility] Last Admin: 08/07/16 16:06 Dose: Not Given Piperacillin Sod/Tazobactam (Sod 3.375 gm/ Sodium Chloride) 100 mls @ 200 mls/ hr IVPB Q6H [facility] Last Admin: 08/07/16 17:18 Dose: 200 mls/hr Metronidazole (Flagyl) 500 mg in 100 mls @ 100 mls/hr IVPB Q8 [facility] Last Admin: 08/07/16 16:23 Dose: 100 mls/hr BUPIVACAINE 0.125%/0.9% NACL (Bupivacaine-Ns 0.125% On-Q [employer] Supervisor) 600 mls @ 4 mls/ hr IJ ONCE ONE Stop: 08/13/16 17:59 Norepinephrine Bitartrate 4 mg (/ Sodium Chloride) 254 mls @ 15.24 mls/hr IV .[id number] PRN; Protocol; 4 MCG/MIN PRN Reason: TITRATE PER MD ORDER Last Titration: 08/07/16 16:14 Dose: 20 mcg/min, 76.2 mls/hr Propofol (Diprivan) 1,000 mg in 100 mls @ 14.288 mls/hr IV .Q7H [facility]; 35 MCG/KG/ MIN PRN Reason: Protocol Last Admin: 08/07/16 14:30 Dose: 30 mcg/kg/min, 12.247 mls/hr Sodium Chloride (Sodium Chloride 0.9%) 1,000 mls @ 999 mls/hr IV .Q1H1M [facility] Last Admin: 08/07/16 17:17 Dose: 999 mls/hr Phenylephrine HCl 30 mg/ (Sodium Chloride) 253 mls @ 10.12 mls/hr IV .Q24H PRN ; Protocol; 20 MCG/MIN PRN Reason: TITRATE PER MD ORDER Last Admin: 08/07/16 16:20 Dose: 180 mcg/min, 91.08 mls/hr Dopamine HCl/Dextrose (Dopamine 400mg/250ml D5w) 400 mg in 250 mls @ 6.226 mls/ hr IV .Q24H PRN; Protocol; 2 MCG/KG/MIN PRN Reason: TITRATE PER MD ORDER Last Admin: 08/07/16 17:33 Dose: 10 mcg/kg/min, 31.128 mls/hr Potassium Chloride (Potassium Chloride 20 Meq/100 Ml) 20 meq in 100 mls @ 50 mls/hr IVPB ONCE ONE Stop: 08/07/16 19:59 Last Admin: 08/07/16 18:06 Dose: 50 mls/hr Morphine Sulfate (Morphine) 2 mg IVP Q6H PRN PRN Reason: Pain, moderate (4-7) Ondansetron HCl (Zofran Inj) 4 mg IVP Q4H PRN PRN Reason: Nausea/Vomiting Ondansetron HCl (Zofran Inj) 4 mg IVP Q6H PRN PRN Reason: Nausea/Vomiting Pantoprazole Sodium (Protonix Inj) 40 mg IVP DAILY [facility] Pantoprazole Sodium (Protonix Inj) 40 mg IVP DAILY [facility] Pneumococcal Polyvalent Vaccine (Pneumovax 23 Vaccine) 0.5 ml IM .ONCE ONE Stop: 08/10/16 16:01 Sodium Bicarbonate (Sodium Bicarbonate (8.4%) 50 Meq Syringe) 50 meq IVP Q5MIN [facility] Stop: 08/08/16 16:01 Last Admin: 08/07/16 16:16 Dose: 50 meq Results - Vital Signs Recent Vital Signs: Last Vital Signs Temp 95.1 F L 08/07/16 14:59 Pulse 138 H 08/07/16 18:47 Resp 30 H 08/07/16 18:47 BP 94/64 L 08/07/16 18:47 Pulse Ox 88 L 08/07/16 18:30 - Labs Result Diagrams: 08/07/16 14:45 08/07/16 14:45 Labs: Laboratory Results - last 24 hr 08/07/16 08/07/16 08/07/16 06:24 07:05 11:50 WBC RBC Hgb Hct MCV MCH MCHC RDW Plt Count MPV Neut % (Auto) Lymph % (Auto) [place] % (Auto) Eos % (Auto) Baso % (Auto) Neut # Lymph # [place] # Eos # Baso # Differential Comment PT INR APTT Puncture Site Na pCO2 46 H pO2 91 HCO3 16.3 L ABG pH 7.18 L* ABG Total CO2 18.6 L ABG O2 Saturation 97.3 ABG Base Excess -11.0 L Jesse Test Na ABG Potassium 3.3 L A-a O2 Difference Respiratory Index Sodium 141.0 Chloride 113.0 H Glucose 125 H Lactate 4.2 H* Mechanical Rate FiO2 Tidal Volume PEEP Crit Value Called To A ramiro rn Crit Value Called By Toi boyd rt Crit Value Read Back Y Blood Gas Notified Time 1200 Potassium Carbon Dioxide Anion Gap BUN Creatinine Est GFR ( Amer) Est GFR (Non-Af Amer) Random Glucose Calcium Phosphorus Magnesium Total Bilirubin AST ALT Alkaline Phosphatase Total Protein Albumin Globulin Albumin/Globulin Ratio Arterial Blood Potassium 3.3 L Urine Color Margie Urine Clarity Clear Urine pH 5.0 Ur Specific [place] 1.046 H Urine Protein Negative Urine Glucose (UA) Normal Urine Ketones Trace Urine Blood 1+ H Urine Nitrate Negative Urine Bilirubin 1+ H Urine Urobilinogen 2.0 H Ur Leukocyte Esterase Neg Urine WBC (Auto) 1 Urine RBC (Auto) 19 H Ur Squamous Epith Cells 1 Blood Type A POSITIVE Blood Type Confirm A POSITIVE Antibody Screen Negative 08/07/16 08/07/16 08/07/16 14:21 14:45 14:45 WBC 1.7 L* RBC 4.16 Hgb 13.0 D Hct 39.9 MCV 96.0 MCH 31.2 H MCHC 32.5 L RDW 14.0 Plt Count 220 MPV 8.2 Neut % (Auto) 55.4 Lymph % (Auto) 40.0 [place] % (Auto) 4.1 Eos % (Auto) 0.1 Baso % (Auto) 0.4 Neut # 1.0 L Lymph # 0.7 L [place] # 0.1 Eos # 0.0 Baso # 0.0 Differential Comment PT 15.0 H INR 1.3 APTT 37 H D Puncture Site A line pCO2 21 L pO2 138 H HCO3 13.5 L ABG pH 7.28 L ABG Total CO2 10.5 L ABG O2 Saturation 98.9 H ABG Base Excess -14.7 L Jesse Test Na ABG Potassium 1.6 L* A-a O2 Difference 549.0 Respiratory Index 4.0 Sodium 150.0 H Chloride 128.0 H Glucose 66 Lactate 2.0 Mechanical Rate 22 FiO2 100.0 Tidal Volume 510 PEEP 5 Crit Value Called To Dr martinez Crit Value Called By Kizzy bolden librarian helper Crit Value Read Back Y Blood Gas Notified Time 1425 Potassium Carbon Dioxide Anion Gap BUN Creatinine Est GFR ( Amer) Est GFR (Non-Af Amer) Random Glucose Calcium Phosphorus Magnesium Total Bilirubin AST ALT Alkaline Phosphatase Total Protein Albumin Globulin Albumin/Globulin Ratio Arterial Blood Potassium 1.6 L* Urine Color Urine Clarity Urine pH Ur Specific [place] Urine Protein Urine Glucose (UA) Urine Ketones Urine Blood Urine Nitrate Urine Bilirubin Urine Urobilinogen Ur Leukocyte Esterase Urine WBC (Auto) Urine RBC (Auto) Ur Squamous Epith Cells Blood Type Blood Type Confirm Antibody Screen 08/07/16 08/07/16 14:45 17:40 WBC RBC Hgb Hct MCV MCH MCHC RDW Plt Count MPV Neut % (Auto) Lymph % (Auto) [place] % (Auto) Eos % (Auto) Baso % (Auto) Neut # Lymph # [place] # Eos # Baso # Differential Comment PT INR APTT Puncture Site A line pCO2 19 L* pO2 94 HCO3 13.1 L ABG pH 7.29 L ABG Total CO2 9.7 L ABG O2 Saturation 97.7 ABG Base Excess -15.1 L Jesse Test Na ABG Potassium 1.8 L* A-a O2 Difference 595.0 Respiratory Index 6.3 Sodium 138 151.0 H Chloride 110 H 129.0 H Glucose 74 Lactate 2.8 H Mechanical Rate 22 FiO2 100.0 Tidal Volume 500 PEEP 5 Crit Value Called To Dr martinez Crit Value Called By [facility] Crit Value Read Back Y Blood Gas Notified Time 1750 Potassium 3.2 L Carbon Dioxide 18 L Anion Gap 13 BUN 41 H Creatinine 1.1 Est GFR ( Amer) 59 Est GFR (Non-Af Amer) 49 Random Glucose 111 H Calcium 7.8 L Phosphorus 4.1 Magnesium 1.4 L Total Bilirubin 1.7 H AST 37 H D ALT 37 Alkaline Phosphatase 132 H D Total Protein 3.3 L Albumin 1.6 L D Globulin 1.7 L Albumin/Globulin Ratio 0.9 L Arterial Blood Potassium 1.8 L* Urine Color Urine Clarity Urine pH Ur Specific [place] Urine Protein Urine Glucose (UA) Urine Ketones Urine Blood Urine Nitrate Urine Bilirubin Urine Urobilinogen Ur Leukocyte Esterase Urine WBC (Auto) Urine RBC (Auto) Ur Squamous Epith Cells Blood Type Blood Type Confirm Antibody Screen Attending/Attestation - Attestation I have personally seen and examined this patient.: Yes I have fully participated in the care of the patient.: Yes I have reviewed all pertinent clinical information: Yes Notes (Text): 08/07/16 19:05 Patient seen and examined in the intensive care unit. Status post lap for perforated sigmoid colon status post resection and Flaco procedure Patient in septic shock requiring pressors Fluid resuscitation and antibiotics Continue ventilatory support Follow-up CBC, ABG and chest x-ray
--- NOTE | 2016-08-07 17:06 | PCM.SEPTIC ---
Sepsis Progress Note - Reassessment Type Date of Evaluation: 08/07/16 Time of Evaluation: 15:54 Reassessment Type: Non-invasive reassessment - Non Invasive Reassessment Were the most recent vital sign reviewed: Yes Vital Sign (Latest): Temp Pulse Resp BP Pulse Ox 95.1 F L 99 H 22 101/64 100 08/07/16 14:59 08/07/16 16:38 08/07/16 16:38 08/07/16 16:38 08/07/16 16:38 Cardiovascular: Yes: Tachycardia. No: JVD Respiratory: Yes: Decreased Breath Sounds. No: Respiratory Distress Capillary Refill: Normal (Less than 2 sec) Pulses: Normal Radial, Normal Dorsalis Pedis, Normal Posterior Tibialis Skin: Normal Color, Warm
[2016-08-07] MEDS: DOPamine 400mg/250ml D5W 400 MG/250 ML BAG IV PRN ×2 (17:33→22:11)
[2016-08-07 17:46] LABS: ABG MECHANICAL RATE 22; ATERIAL BLOOD GAS PEEP 5; DRAW SITE A LINE
[2016-08-07] MEDS: Magnesium Sulfate 1 gm in D5W 1 GM/100 ML BAG IVPB SCH ×2 (18:09→18:10)
[2016-08-07] MEDS ORDERED: Albumin Human 5% (12.5 gm/250 ml) IV ONE (20:45)
[2016-08-07 21:27] LABS: ATERIAL BLOOD GAS PEEP 5; DRAW SITE A LINE
[2016-08-07 22:39] LABS: BASO % 0.4 % (0.0-2.0); EOS % 0.9 % (0.0-4.0); HEMATOCRIT 35.6 % (34.0-47.0); LYMPH # 0.6 K/uL (1.0-4.3); LYMPH % 26.8 % (20.0-40.0); MEAN CELL VOLUME 95.9 fL (81.0-99.0); MEAN CORPUSCULAR HEMOGLOBIN 31.5 pg (27.0-31.0); MEAN CORPUSCULAR HGB CONC 32.8 g/dL (33.0-37.0); MEAN PLATELET VOLUME 8.1 fL (7.2-11.7); MONO # 0.2 K/uL (0.0-0.8); MONO % 7.4 % (0.0-10.0); WHITE BLOOD COUNT 2.4 K/uL (4.8-10.8)
[2016-08-07] MEDS: Clindamycin 300 MG in Sodium Chloride 0.9% 50 ML IVPB SCH (22:40)
[2016-08-07 22:43] LABS: POTASSIUM 4.2 mmol/L (3.6-5.2)
[2016-08-07 22:45] LABS: ALB/GLOB RATIO 1.4 (1.0-2.1); BILIRUBIN,TOTAL 1.7 mg/dL (0.2-1.3); TOTAL PROTEIN 3.8 g/dL (6.3-8.3)
[2016-08-07 22:46] LABS: CALCIUM 6.9 mg/dl (8.6-10.4); MAGNESIUM 1.9 mg/dL (1.6-2.3); PHOSPHOROUS 2.7 mg/dL (2.5-4.5)
[2016-08-08] MEDS: Phenylephrine 30 MG in Sodium Chloride 0.9% 250 ML IV PRN ×4 (01:20→10:32)
[2016-08-08] MEDS: Lactated Ringer's 1,000 ML IV SCH ×3 (03:10→07:37)
[2016-08-08] MEDS: DOPamine 400mg/250ml D5W 400 MG/250 ML BAG IV PRN (03:27)
[2016-08-08] MEDS: Propofol 10 mg/ml 1,000 MG/100 ML VIAL IV SCH (04:00)
[2016-08-08 04:07] LABS: ABG MECHANICAL RATE 22; ATERIAL BLOOD GAS PEEP 5
[2016-08-08 04:21] LABS: BASO % 0.1 % (0.0-2.0); EOS % 0.3 % (0.0-4.0); HEMATOCRIT 36.6 % (34.0-47.0); LYMPH # 0.6 K/uL (1.0-4.3); LYMPH % 16.1 % (20.0-40.0); MEAN CELL VOLUME 96.8 fL (81.0-99.0); MEAN PLATELET VOLUME 8.6 fL (7.2-11.7); MONO # 0.2 K/uL (0.0-0.8); MONO % 5.4 % (0.0-10.0); RED CELL DISTRIBUTION WIDTH 14.6 % (11.5-14.5); WHITE BLOOD COUNT 3.5 K/uL (4.8-10.8)
[2016-08-08 04:28] LABS: INR 2.5
[2016-08-08] MEDS ORDERED: Sodium Chloride 0.45% 1,000 ML IV SCH (04:30)
[2016-08-08 04:33] LABS: POTASSIUM 5.2 mmol/L (3.6-5.2)
[2016-08-08 04:35] LABS: ALB/GLOB RATIO 1.1 (1.0-2.1); BILIRUBIN,TOTAL 1.7 mg/dL (0.2-1.3); TOTAL PROTEIN 3.5 g/dL (6.3-8.3)
[2016-08-08 04:36] LABS: CALCIUM 7.2 mg/dl (8.6-10.4); MAGNESIUM 1.9 mg/dL (1.6-2.3); PHOSPHOROUS 5.6 mg/dL (2.5-4.5)
[2016-08-08] MEDS: Clindamycin 300 MG in Sodium Chloride 0.9% 50 ML IVPB SCH (04:40)
[2016-08-08] MEDS: metroNIDAZOLE IV 500 mg/100 ml 500 MG/100 ML BAG IVPB SCH (05:46)
[2016-08-08] MEDS: Piperacillin/Tazobact 3.375 GM in Sodium Chloride 100 ML IVPB SCH ×2 (06:00→10:17)
[2016-08-08 06:22] LABS: ABG MECHANICAL RATE 28; ATERIAL BLOOD GAS PEEP 5; DRAW SITE ALINE
[2016-08-08] MEDS ORDERED: Sodium Bicarbonate (8.4%) 50 Meq Syringe IVP ONE ×2 (06:39→06:40)
[2016-08-08] MEDS: EPINEPHrine- 1 MG in Sodium Chloride 0.9% 250 ML IV PRN ×2 (07:18→10:31)
[2016-08-08] MEDS ORDERED: Magnesium Sulfate 1 gm in D5W 1 GM/100 ML BAG IVPB ONE (08:13)
[2016-08-08 09:23] LABS: ABG MECHANICAL RATE 28; ATERIAL BLOOD GAS PEEP 5; DRAW SITE ALINE
[2016-08-08 09:32] LABS: BASO % 0.1 % (0.0-2.0); EOS % 0.3 % (0.0-4.0); HEMATOCRIT 33.2 % (34.0-47.0); LYMPH # 0.8 K/uL (1.0-4.3); LYMPH % 20.5 % (20.0-40.0); MEAN CORPUSCULAR HEMOGLOBIN 31.6 pg (27.0-31.0); MEAN CORPUSCULAR HGB CONC 31.9 g/dL (33.0-37.0); MEAN PLATELET VOLUME 8.6 fL (7.2-11.7); MONO # 0.2 K/uL (0.0-0.8); MONO % 5.2 % (0.0-10.0); NRBC % 0.1 % (0.0-2.0); RED CELL DISTRIBUTION WIDTH 15.1 % (11.5-14.5); WHITE BLOOD COUNT 3.7 K/uL (4.8-10.8)
[2016-08-08 09:45] LABS: MEAN CELL VOLUME 99.1 fL (81.0-99.0)
[2016-08-08] MEDS ORDERED: Sodium Bicarbonate (8.4%) 50 Meq Syringe ONE (09:48)
[2016-08-08] MEDS ORDERED: Fluconazole IV 200mg/100 ml NS 100 ML IVPB SCH (10:00)
[2016-08-08] MEDS: Albumin Human 25% (12.5 gm/50 ml) IV SCH ×2 (10:16→10:24)
[2016-08-08 10:20] LABS: POTASSIUM 4.4 mmol/L (3.6-5.2)
[2016-08-08 10:22] LABS: ALB/GLOB RATIO 1.1 (1.0-2.1); BILIRUBIN,TOTAL 1.5 mg/dL (0.2-1.3); TOTAL PROTEIN 2.9 g/dL (6.3-8.3)
[2016-08-08 10:23] LABS: CALCIUM 7.5 mg/dl (8.6-10.4)
[2016-08-08 10:35] VITALS: BP 34/27
--- NOTE | 2016-08-08 10:44 | RAD ---
HISTORY: ET Tube Eval COMPARISON: 08/07/2016 FINDINGS: LUNGS: Endotracheal tube extending into the mid thoracic trachea. NG tube extending into the stomach. Right central venous catheter extending to the cavoatrial junction. Additional catheter tubing seen projecting over the lower abdomen. Prominent diffuse increased markings throughout both lungs suggestive for edema and or infiltrate. Diffuse increased interstitial lung markings. Bibasilar atelectasis and or infiltrate. PLEURA: As above. CARDIOVASCULAR: Cardiomegaly. Calcification at the aortic knob. OSSEOUS STRUCTURES: Degenerative changes in the spine with paravertebral osteophytes. VISUALIZED UPPER ABDOMEN: Normal. OTHER FINDINGS: None. IMPRESSION: Endotracheal tube extending into the mid thoracic trachea. NG tube extending into the stomach. Right central venous catheter extending to the cavoatrial junction. Additional catheter tubing seen projecting over the lower abdomen. Prominent diffuse increased markings throughout both lungs suggestive for edema and or infiltrate. Diffuse increased interstitial lung markings. Bibasilar atelectasis and or infiltrate.
[2016-08-08 11:27] VITALS: PULSE 28; RESP 0; O2SAT 17
[2016-08-08 11:34] VITALS: TEMP 99.1
--- NOTE | 2016-08-08 12:02 | CP.PCM.DIS ---
Provider - Provider Date of Admission: 08/07/16 05:22 Attending physician: Oleg Russo MD Consults: General Surgery: Dr. Kenney ICU Time Spent in preparation of Discharge (in minutes): 29 Diagnosis - Discharge Diagnosis (1) Severe sepsis Status: Acute (2) Perforated abdominal viscus Status: Acute (3) Peritonitis (acute) generalized Status: Acute (4) Metabolic acidosis Status: Acute (5) Hypertension Status: Chronic (6) Hyperlipidemia Status: Chronic (7) Prophylactic measure Status: Acute Hospital Course - Lab Results Lab Results: Micro Results 08/07/16 16:00 Peritoneal Fluid Gram Stain - Final 08/07/16 16:00 Peritoneal Fluid Body Fluid Culture - Preliminary Gram Negative Anthony Gram Negative Anthony#2 Gram Positive Cocci Most Recent Lab Values WBC 3.7 K/uL (4.8-10.8) L 08/08/16 09:20 RBC 3.35 Mil/uL (3.80-5.20) L 08/08/16 09:20 Hgb 10.6 g/dL (11.0-16.0) L 08/08/16 09:20 Hct 33.2 % (34.0-47.0) L 08/08/16 09:20 MCV 99.1 fL (81.0-99.0) H D 08/08/16 09:20 MCH 31.6 pg (27.0-31.0) H 08/08/16 09:20 MCHC 31.9 g/dL (33.0-37.0) L 08/08/16 09:20 RDW 15.1 % (11.5-14.5) H 08/08/16 09:20 Plt Count 106 K/uL (130-400) L D 08/08/16 09:20 MPV 8.6 fL (7.2-11.7) 08/08/16 09:20 Neut % (Auto) 73.9 % (50.0-75.0) 08/08/16 09:20 Lymph % (Auto) 20.5 % (20.0-40.0) 08/08/16 09:20 Moore % (Auto) 5.2 % (0.0-10.0) 08/08/16 09:20 Eos % (Auto) 0.3 % (0.0-4.0) 08/08/16 09:20 Baso % (Auto) 0.1 % (0.0-2.0) 08/08/16 09:20 Neut # 2.7 K/uL (1.8-7.0) 08/08/16 09:20 Lymph # 0.8 K/uL (1.0-4.3) L 08/08/16 09:20 Moore # 0.2 K/uL (0.0-0.8) 08/08/16 09:20 Eos # 0.0 K/uL (0.0-0.7) 08/08/16 09:20 Baso # 0.0 K/uL (0.0-0.2) 08/08/16 09:20 Differential Comment 08/08/16 09:20 Smear Path Review 08/07/16 14:45 PT 28.9 SECONDS (9.7-12.2) H D 08/08/16 04:14 INR 2.5 D 08/08/16 04:14 APTT 54 SECONDS (21-34) H D 08/08/16 04:14 Puncture Site Odette 08/08/16 09:19 pCO2 32 mm/Hg (35-45) L 08/08/16 09:19 pO2 49 mm/Hg (80-100) L 08/08/16 09:19 HCO3 9.5 mmol/L (21-28) L* 08/08/16 09:19 ABG pH 7.10 (7.35-7.45) L* 08/08/16 09:19 ABG Total CO2 10.9 mmol/L (22-28) L 08/08/16 09:19 ABG O2 Saturation 80.5 % (95-98) L 08/08/16 09:19 ABG Base Excess -18.7 mmol/L (-2.0-3.0) L 08/08/16 09:19 Jesse Test Na 08/08/16 09:19 ABG Potassium 4.2 mmol/L (3.6-5.2) 08/08/16 09:19 VBG pH 7.51 (7.32-7.43) H 08/07/16 02:00 VBG pCO2 25 mmHg (40-60) L 08/07/16 02:00 VBG HCO3 23.7 mmol/L 08/07/16 02:00 VBG Total CO2 20.7 mmol/L (22-28) L 08/07/16 02:00 VBG O2 Sat (Calc) 95.3 % (40-65) H 08/07/16 02:00 VBG Base Excess -1.5 mmol/L (0.0-2.0) L 08/07/16 02:00 VBG Potassium 3.1 mmol/L (3.6-5.2) L 08/07/16 02:00 A-a O2 Difference 624.0 mm/Hg 08/08/16 09:19 Respiratory Index 12.7 08/08/16 09:19 Sodium 146.0 mmol/l (132-148) 08/08/16 09:19 Chloride 114.0 mmol/L (98-107) H 08/08/16 09:19 Glucose 20 mg/dl (65-105) L* D 08/08/16 09:19 Lactate 14.0 mmol/L (0.7-2.1) H* 08/08/16 09:19 Mechanical Rate 28 08/08/16 09:19 FiO2 100.0 % 08/08/16 09:19 Tidal Volume 500 08/08/16 09:19 PEEP 5 08/08/16 09:19 Crit Value Called To Dr. short 08/08/16 09:19 Crit Value Called By Manjeet salmeron 08/08/16 09:19 Crit Value Read Back Y 08/08/16 09:19 Blood Gas Notified Time 922 08/08/16 09:19 Sodium 144 mmol/L (132-148) 08/08/16 09:20 Potassium 4.4 mmol/L (3.6-5.2) 08/08/16 09:20 Chloride 108 mmol/L (98-107) H 08/08/16 09:20 Carbon Dioxide 14 mmol/L (22-30) L 08/08/16 09:20 Anion Gap 26 (10-20) H 08/08/16 09:20 BUN 40 mg/dL (7-17) H 08/08/16 09:20 Creatinine 1.9 MG/DL (0.7-1.2) H 08/08/16 09:20 Est GFR ( Amer) 31 08/08/16 09:20 Est GFR (Non-Af Amer) 26 08/08/16 09:20 Random Glucose 23 mg/dL (65-105) L* D 08/08/16 09:20 Calcium 7.5 mg/dl (8.6-10.4) L 08/08/16 09:20 Phosphorus 5.6 mg/dL (2.5-4.5) H 08/08/16 04:14 Magnesium 1.9 mg/dL (1.6-2.3) 08/08/16 04:14 Total Bilirubin 1.5 mg/dL (0.2-1.3) H 08/08/16 09:20 AST 3640 U/L (14-36) H 08/08/16 09:20 ALT 2628 U/L (9-52) H 08/08/16 09:20 Alkaline Phosphatase 206 U/L (38-126) H D 08/08/16 09:20 Total Creatine Kinase 126 U/L (30-135) 08/07/16 01:57 Troponin I < 0.0120 ng/mL (0.00-0.120) 08/07/16 01:57 Total Protein 2.9 g/dL (6.3-8.3) L 08/08/16 09:20 Albumin 1.5 g/dL (3.5-5.0) L 08/08/16 09:20 Globulin 1.4 gm/dL (2.2-3.9) L 08/08/16 09:20 Albumin/Globulin Ratio 1.1 (1.0-2.1) 08/08/16 09:20 Lipase 91 U/L (23-300) 08/07/16 01:57 Arterial Blood Potassium 4.2 mmol/L (3.6-5.2) 08/08/16 09:19 Venous Blood Potassium 3.1 mmol/L (3.6-5.2) L 08/07/16 02:00 Urine Color Margie (YELLOW) 08/07/16 07:05 Urine Clarity Clear (Clear) 08/07/16 07:05 Urine pH 5.0 (5.0-8.0) 08/07/16 07:05 Ur Specific [place] 1.046 (1.003-1.030) H 08/07/16 07:05 Urine Protein Negative mg/dL (NEGATIVE) 08/07/16 07:05 Urine Glucose (UA) Normal mg/dL (Normal) 08/07/16 07:05 Urine Ketones Trace mg/dL (NEGATIVE) 08/07/16 07:05 Urine Blood 1+ (NEGATIVE) H 08/07/16 07:05 Urine Nitrate Negative (NEGATIVE) 08/07/16 07:05 Urine Bilirubin 1+ (NEGATIVE) H 08/07/16 07:05 Urine Urobilinogen 2.0 mg/dL (0.2-1.0) H 08/07/16 07:05 Ur Leukocyte Esterase Neg Walt/uL (Negative) 08/07/16 07:05 Urine WBC (Auto) 1 /hpf (0-5) 08/07/16 07:05 Urine RBC (Auto) 19 /hpf (0-3) H 08/07/16 07:05 Ur Squamous Epith Cells 1 /hpf (0-5) 08/07/16 07:05 Blood Type A POSITIVE 08/07/16 06:24 Blood Type Confirm A POSITIVE 08/07/16 06:24 Antibody Screen Negative 08/07/16 06:24 - Hospital Course Hospital Course: As per H&P " HPI: Patient is a 76yo female PMHx HTN, HLD, glaucoma presents to ER for acute abdominal pain that started earlier that night. Patient ate dinner and started to feel nauseous and had 4-5 episodes of nonbilious but dark colored emesis. Patient reported the pain was >10/10 in intensity and sharp stabbing pain radiating to her back. Patient reported the pain was so intense that she was unable to take in a deep breath because of the pain. At first she believed the pain could have been due to her history of constipation and she drank some prune juice which did not help. She reported feeling a "pop" in her lower abdomen which radiated diffusely and severely. Patient denied headache, dizziness, fever, chills, chest pain, palpitations, SOB, cough, dysuria, hematuria, pain/swelling in her legs bilaterally. PMHx: HTN, HLD, glaucoma PSHx: hysterectomy ALL: NKDA Medications: pls see chart FamHx: denies Social Hx: denies EtOH, tobacco, drugs. 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 Admits to severe abdominal pain, nausea, vomiting, constipation, dry mouth" Patient admitted for peritonitis secondary to bowel perforation. General surgery and critical care consulted on the case. Surgery decision-making including preoperative, intraoperative, and post operative per surgical management regarding bowel perforation. Patient required intensive care monitoring, critical care management per ICU during hospitalization. Medicine focus on hypertension and hyperlipidemia history. Patient diagnosed with peritonitis secondary bowel perforation and admitted directly to intensive critical care unit following emergent surgery. Imaging noted from CT abdomen/pelvis (08/07/16): free air suggesting viscus perforation; nonspecific colitis and/or diverticulitis of descending colon and sigmoid colon. Nonspecific enteritis. Cholelithiasis. General surgery consulted and patient underwent exploratory laparotomy, codi's sigmoid colectomy with end colostomy day of Q- catheter insertion. Patient required critical care management including but not limited to mechanical ventilation, IV pressors, and IV antibiotics. Patient condition remained critical, required multiple cardiac resuscitative interventions, in-spite of medical intervention, efforts remained futile. Patient on 10:46AM on 08/08/16. I discussed with emergency medicine medical director, Beverly Pelaez ([employer] [facility] [place], ) regarding patient's case; he determined for released at 11:53AM on 08/08/16. Diagnoses: 1) Severe Sepsis 2) Peritonitis and Bowel Perforation 3) Shock Liver 4) Metabolic acidosis 5) History of Hypertension 6) History of Hyperlipidemia This is a summary of patient's hospitalization. Please refer record of body as whole for further details. - Date & Time of H&P Date of H&P: 08/07/16 Time of H&P: 06:06 Discharge Exam - Head Exam Head Exam: ATRAUMATIC Discharge Plan - Follow Up Plan Condition: Disposition: HOME/ ROUTINE
--- NOTE | 2016-08-08 12:24 | CP.CCUPN ---
<Golden Blackburn - Last Filed: 08/08/16 12:12> CCU Subjective - Physician Review Subjective (Free Text): 08/08/16 12:12 Patient seen and examined at the bedside. Patient s/p code blue around 6am. The patient has been maintained on 3 presser medications. The patient has a climbing lactic acid level and worsening acidosis. The patient went into cardiac arrest on two more occasions. Code blue was called at 8:36 and 10: 46am. The patient following the second code blue. After the initial arrest, the patient's medications were adjusted. The levophed and dopamine were DC. The patient was started on epinephrine, phenylephrine, and vasopressin. A bicarb drip was initiated, and 150mg hydrocortisone was administered. The presser medication were maxed out. The patient was given 3 rounds of epinephrine in accordance with the ACLS algorithms before ROSC during the 8:36amcode blue. Similarly, 4 rounds of epinephrine were given during the 10:46am code blue. The patient following the 10:46am code blue. CCU Objective - Vital Signs / Intake & Output Vital Signs (Last 4 hours): Vital Signs Pulse Resp BP Pulse Ox 08/08/16 11:10 0 L 08/08/16 11:00 0 L 08/08/16 10:50 28 H 08/08/16 10:40 28 L 28 H 17 L 08/08/16 10:32 50 L 29 H 34/27 L 08/08/16 10:30 82 28 H 08/08/16 10:25 114 H 28 H 66 L 08/08/16 10:20 137 H 28 H 56 L 08/08/16 10:10 165 H 27 H 116/48 L 65 L 08/08/16 10:00 107 H 17 49 L 08/08/16 09:50 53 L 28 H 08/08/16 09:40 109 H 28 H 08/08/16 09:39 110 H 28 H 66/37 L 08/08/16 09:30 111 H 28 H 08/08/16 09:25 110 H 28 H 58/38 L 08/08/16 09:20 109 H 28 H 08/08/16 09:10 129 H 29 H 08/08/16 09:00 137 H 28 H 08/08/16 08:57 135 H 29 H 187/134 H 06/15/17 08:50 177 H 31 H 08/08/16 08:40 112 H 24 98/54 L 70 L 08/08/16 08:30 115 H 21 08/08/16 08:25 54 L 28 H 62/35 L 08/08/16 08:22 29 H 37/29 L 08/08/16 08:20 81 26 H 47 L Intake and Output (Last 8hrs): Intake & Output 08/07/16 08/08/16 08/08/16 22:59 06:59 14:59 Intake Total 7725 6220.4 3476.60 Output Total 630 933 0018 Balance 7515 6090.4 1841.60 Weight 90.22 kg Intake: IV 1010 1264 757.00 Intake, IV Amount 6415 4956.4 2719.6 Left Hand 2200 Left Wrist 300 R medial port 100 100 450 R proximal port 270 720 360 Right Distal Port 400 Internal Jugular Right Internal Jugular 270 480 339 Right Medial Port 2610 2750 1000 Internal Jugular Right Proximal Port 265 656.4 95.6 right hand 250 475 Albumin 300 Output: Gastric Amount 1500 Nares 1500 Drainage 180 90 135 Right Abdomen 180 90 135 Urine 30 40 0 Urethral (Mcpherson) 30 40 0 Other: # Bowel Movements 0 0 0 - Physical Exam Narrative Physical Exam (Free Text): 08/08/16 12:25 Patient no neurologic reflex (gag, corneal) no heart sounds no breath sounds no pulse - Medications Active Medications: Active Medications Generic Name Dose Route Start Last Admin Trade Name Freq PRN Reason Stop Dose Admin Albumin Human 12.5 gm 08/08/16 10:00 08/08/16 10:24 Albumin Human 25% (12.5 Gm/50 Ml) IV 08/08/16 19:01 12.5 gm Q1 MARINA Administration Hydrocortisone Sodium Succinate 100 mg 08/08/16 16:00 Solu-Cortef IVP Q8H MARINA Hydromorphone HCl 1.5 mg 08/07/16 05:08 Dilaudid IVP Q3H PRN Pain, moderate (4-7) Piperacillin Sod/Tazobactam 100 mls @ 200 mls/hr 08/07/16 05:15 08/08/16 10: 17 Sod 3.375 gm/ Sodium Chloride IVPB 200 mls/hr Q6H MARINA Administration Metronidazole 500 mg in 100 mls @ 100 mls/hr 08/07/16 06:15 08/08/16 05:46 Flagyl IVPB 100 mls/hr Q8 MARINA Administration Phenylephrine HCl 30 mg/ 253 mls @ 10.12 mls/hr 08/07/16 15:56 08/08/16 10:32 Sodium Chloride IV 180 mcg/min .Q24H PRN 91.08 mls/hr TITRATE PER MD ORDER Administration Protocol 20 MCG/MIN Fluconazole 100 mls @ 100 mls/hr 08/08/16 10:00 08/08/16 10:17 Diflucan Iv 200 Mg/100 Ml Ns IVPB 100 mls/hr DAILY MARINA Administration Epinephrine HCl 1 mg/ Sodium 251 mls @ 15.06 mls/hr 08/08/16 06:41 08/08/16 10:31 Chloride IV 5 mcg/min .[id number] PRN 75.3 mls/hr TITRATE PER MD ORDER Administration Protocol 1 MCG/MIN Vasopressin 40 units/ Sodium 42 mls @ 0.63 mls/hr 08/08/16 07:45 08/08/16 08: 22 Chloride IV 0.01 units/min .Q24H MARINA 0.63 mls/hr Protocol Administration 0.01 UNITS/MIN Sodium Bicarbonate 150 meq/ 1,150 mls @ 125 mls/hr 08/08/16 08:00 08/08/16 09 :04 Sodium Chloride IV 125 mls/hr .[id number] MARINA Administration Morphine Sulfate 2 mg 08/07/16 06:07 08/08/16 01:02 Morphine IVP 2 mg Q6H PRN Administration Pain, moderate (4-7) Ondansetron HCl 4 mg 08/07/16 06:07 Zofran Inj IVP Q6H PRN Nausea/Vomiting Pantoprazole Sodium 40 mg 08/08/16 10:00 08/08/16 10:19 Protonix Inj IVP 40 mg DAILY MARINA Administration Pneumococcal Polyvalent Vaccine 0.5 ml 08/10/16 16:00 Pneumovax 23 Vaccine IM 08/10/16 16:01 .ONCE ONE Sodium Bicarbonate 50 meq 08/07/16 16:00 08/07/16 16:16 Sodium Bicarbonate (8.4%) 50 Meq Syringe IVP 08/08/16 16:01 50 meq Q5MIN MARINA Administration - Patient Studies Lab Studies: Microbiology Studies 08/07/16 16:00 Gram Stain - Final Peritoneal Fluid Body Fluid Culture - Preliminary Gram Negative Anthony Gram Negative Anthony#2 Gram Positive Cocci Lab Studies 08/08/16 08/08/16 08/08/16 Range/Units 09:20 09:20 09:19 WBC 3.7 L (4.8-10.8) K/uL RBC 3.35 L (3.80-5.20) Mil/uL Hgb 10.6 L (11.0-16.0) g/dL Hct 33.2 L (34.0-47.0) % MCV 99.1 H D (81.0-99.0) fL MCH 31.6 H (27.0-31.0) pg MCHC 31.9 L (33.0-37.0) g/dL RDW 15.1 H (11.5-14.5) % Plt Count 106 L D (130-400) K/uL MPV 8.6 (7.2-11.7) fL Neut % (Auto) 73.9 (50.0-75.0) % Lymph % (Auto) 20.5 (20.0-40.0) % [place] % (Auto) 5.2 (0.0-10.0) % Eos % (Auto) 0.3 (0.0-4.0) % Baso % (Auto) 0.1 (0.0-2.0) % Neut # 2.7 (1.8-7.0) K/uL Lymph # 0.8 L (1.0-4.3) K/uL [place] # 0.2 (0.0-0.8) K/uL Eos # 0.0 (0.0-0.7) K/uL Baso # 0.0 (0.0-0.2) K/uL Differential Comment Smear Path Review PT (9.7-12.2) SECONDS INR APTT (21-34) SECONDS Puncture Site Odette pCO2 32 L (35-45) mm/Hg pO2 49 L (80-100) mm/Hg HCO3 9.5 L* (21-28) mmol/L ABG pH 7.10 L* (7.35-7.45) ABG Total CO2 10.9 L (22-28) mmol/L ABG O2 Saturation 80.5 L (95-98) % ABG Base Excess -18.7 L (-2.0-3.0) mmol/L Jesse Test Na ABG Potassium 4.2 (3.6-5.2) mmol/L A-a O2 Difference 624.0 mm/Hg Respiratory Index 12.7 Sodium 144 146.0 (132-148) mmol/l Chloride 108 H 114.0 H (98-107) mmol/L Glucose 20 L* D (65-105) mg/dl Lactate 14.0 H* (0.7-2.1) mmol/L Mechanical Rate 28 FiO2 100.0 % Tidal Volume 500 PEEP 5 Crit Value Called To Dr. short Crit Value Called By Manjeet salmeron Crit Value Read Back Y Blood Gas Notified Time 922 Potassium 4.4 (3.6-5.2) mmol/L Carbon Dioxide 14 L (22-30) mmol/L Anion Gap 26 H (10-20) BUN 40 H (7-17) mg/dL Creatinine 1.9 H (0.7-1.2) MG/DL Est GFR ( Amer) 31 Est GFR (Non-Af Amer) 26 Random Glucose 23 L* D (65-105) mg/dL Calcium 7.5 L (8.6-10.4) mg/dl Phosphorus (2.5-4.5) mg/dL Magnesium (1.6-2.3) mg/dL Total Bilirubin 1.5 H (0.2-1.3) mg/dL AST 3640 H (14-36) U/L ALT 2628 H (9-52) U/L Alkaline Phosphatase 206 H D (38-126) U/L Total Protein 2.9 L (6.3-8.3) g/dL Albumin 1.5 L (3.5-5.0) g/dL Globulin 1.4 L (2.2-3.9) gm/dL Albumin/Globulin Ratio 1.1 (1.0-2.1) Arterial Blood Potassium 4.2 (3.6-5.2) mmol/L 08/08/16 08/08/16 08/08/16 Range/Units 06:15 04:14 04:14 WBC (4.8-10.8) K/uL RBC (3.80-5.20) Mil/uL Hgb (11.0-16.0) g/dL Hct (34.0-47.0) % MCV (81.0-99.0) fL MCH (27.0-31.0) pg MCHC (33.0-37.0) g/dL RDW (11.5-14.5) % Plt Count (130-400) K/uL MPV (7.2-11.7) fL Neut % (Auto) (50.0-75.0) % Lymph % (Auto) (20.0-40.0) % [place] % (Auto) (0.0-10.0) % Eos % (Auto) (0.0-4.0) % Baso % (Auto) (0.0-2.0) % Neut # (1.8-7.0) K/uL Lymph # (1.0-4.3) K/uL [place] # (0.0-0.8) K/uL Eos # (0.0-0.7) K/uL Baso # (0.0-0.2) K/uL Differential Comment Smear Path Review PT 28.9 H D (9.7-12.2) SECONDS INR 2.5 D APTT 54 H D (21-34) SECONDS Puncture Site Odette pCO2 45 (35-45) mm/Hg pO2 72 L (80-100) mm/Hg HCO3 12.3 L (21-28) mmol/L ABG pH 7.09 L* (7.35-7.45) ABG Total CO2 15.1 L (22-28) mmol/L ABG O2 Saturation 92.5 L (95-98) % ABG Base Excess -15.8 L (-2.0-3.0) mmol/L Jesse Test Na ABG Potassium 5.4 H (3.6-5.2) mmol/L A-a O2 Difference 585.0 mm/Hg Respiratory Index 8.1 Sodium 141.0 137 (132-148) mmol/l Chloride 111.0 H 112 H (98-107) mmol/L Glucose 53 L (65-105) mg/dl Lactate 11.7 H* (0.7-2.1) mmol/L Mechanical Rate 28 FiO2 100.0 % Tidal Volume 500 PEEP 5 Crit Value Called To Dr cardona Crit Value Called By Doug jaime/ Crit Value Read Back Y Blood Gas Notified Time 625 Potassium 5.2 (3.6-5.2) mmol/L Carbon Dioxide 8 L* D (22-30) mmol/L Anion Gap 22 H (10-20) BUN 39 H (7-17) mg/dL Creatinine 1.6 H (0.7-1.2) MG/DL Est GFR ( Amer) 38 Est GFR (Non-Af Amer) 32 Random Glucose 75 (65-105) mg/dL Calcium 7.2 L (8.6-10.4) mg/dl Phosphorus 5.6 H (2.5-4.5) mg/dL Magnesium 1.9 (1.6-2.3) mg/dL Total Bilirubin 1.7 H (0.2-1.3) mg/dL AST 973 H D (14-36) U/L ALT 694 H D (9-52) U/L Alkaline Phosphatase 145 H D (38-126) U/L Total Protein 3.5 L (6.3-8.3) g/dL Albumin 1.8 L (3.5-5.0) g/dL Globulin 1.6 L (2.2-3.9) gm/dL Albumin/Globulin Ratio 1.1 (1.0-2.1) Arterial Blood Potassium 5.4 H (3.6-5.2) mmol/L 08/08/16 08/08/16 08/07/16 Range/Units 04:14 03:54 22:31 WBC 3.5 L (4.8-10.8) K/uL RBC 3.78 L (3.80-5.20) Mil/uL Hgb 12.1 (11.0-16.0) g/dL Hct 36.6 (34.0-47.0) % MCV 96.8 (81.0-99.0) fL MCH 32.0 H (27.0-31.0) pg MCHC 33.0 (33.0-37.0) g/dL RDW 14.6 H (11.5-14.5) % Plt Count 150 (130-400) K/uL MPV 8.6 (7.2-11.7) fL Neut % (Auto) 78.1 H (50.0-75.0) % Lymph % (Auto) 16.1 L (20.0-40.0) % [place] % (Auto) 5.4 (0.0-10.0) % Eos % (Auto) 0.3 (0.0-4.0) % Baso % (Auto) 0.1 (0.0-2.0) % Neut # 2.7 (1.8-7.0) K/uL Lymph # 0.6 L (1.0-4.3) K/uL [place] # 0.2 (0.0-0.8) K/uL Eos # 0.0 (0.0-0.7) K/uL Baso # 0.0 (0.0-0.2) K/uL Differential Comment Smear Path Review PT (9.7-12.2) SECONDS INR APTT (21-34) SECONDS Puncture Site A-line l rad pCO2 23 L (35-45) mm/Hg pO2 58 L (80-100) mm/Hg HCO3 9.9 L* (21-28) mmol/L ABG pH 7.16 L* (7.35-7.45) ABG Total CO2 8.9 L (22-28) mmol/L ABG O2 Saturation 88.3 L (95-98) % ABG Base Excess -18.7 L (-2.0-3.0) mmol/L Jesse Test Na ABG Potassium 5.2 (3.6-5.2) mmol/L A-a O2 Difference 626.0 mm/Hg Respiratory Index 10.8 Sodium 137.0 140 (132-148) mmol/l Chloride 112.0 H 116 H (98-107) mmol/L Glucose 76 (65-105) mg/dl Lactate 8.4 H* (0.7-2.1) mmol/L Mechanical Rate 22 FiO2 100.0 % Tidal Volume 500 PEEP 5 Crit Value Called To Laxmi rick rn Crit Value Called By Erna tang rt Crit Value Read Back Y Blood Gas Notified Time 408 Potassium 4.2 (3.6-5.2) mmol/L Carbon Dioxide 13 L (22-30) mmol/L Anion Gap 15 (10-20) BUN 40 H (7-17) mg/dL Creatinine 1.3 H (0.7-1.2) MG/DL Est GFR ( Amer) 48 Est GFR (Non-Af Amer) 40 Random Glucose 114 H (65-105) mg/dL Calcium 6.9 L (8.6-10.4) mg/dl Phosphorus 2.7 (2.5-4.5) mg/dL Magnesium 1.9 (1.6-2.3) mg/dL Total Bilirubin 1.7 H (0.2-1.3) mg/dL AST 350 H D (14-36) U/L ALT 310 H D (9-52) U/L Alkaline Phosphatase 112 (38-126) U/L Total Protein 3.8 L (6.3-8.3) g/dL Albumin 2.2 L D (3.5-5.0) g/dL Globulin 1.6 L (2.2-3.9) gm/dL Albumin/Globulin Ratio 1.4 (1.0-2.1) Arterial Blood Potassium 5.2 (3.6-5.2) mmol/L 08/07/16 08/07/16 08/07/16 Range/Units 22:31 21:20 17:40 WBC 2.4 L (4.8-10.8) K/uL RBC 3.71 L (3.80-5.20) Mil/uL Hgb 11.7 (11.0-16.0) g/dL Hct 35.6 (34.0-47.0) % MCV 95.9 (81.0-99.0) fL MCH 31.5 H (27.0-31.0) pg MCHC 32.8 L (33.0-37.0) g/dL RDW 14.0 (11.5-14.5) % Plt Count 174 (130-400) K/uL MPV 8.1 (7.2-11.7) fL Neut % (Auto) 64.5 (50.0-75.0) % Lymph % (Auto) 26.8 (20.0-40.0) % [place] % (Auto) 7.4 (0.0-10.0) % Eos % (Auto) 0.9 (0.0-4.0) % Baso % (Auto) 0.4 (0.0-2.0) % Neut # 1.6 L (1.8-7.0) K/uL Lymph # 0.6 L (1.0-4.3) K/uL [place] # 0.2 (0.0-0.8) K/uL Eos # 0.0 (0.0-0.7) K/uL Baso # 0.0 (0.0-0.2) K/uL Differential Comment Smear Path Review PT (9.7-12.2) SECONDS INR APTT (21-34) SECONDS Puncture Site A line A line pCO2 26 L 19 L* (35-45) mm/Hg pO2 91 94 (80-100) mm/Hg HCO3 17.0 L 13.1 L (21-28) mmol/L ABG pH 7.34 L 7.29 L (7.35-7.45) ABG Total CO2 14.8 L 9.7 L (22-28) mmol/L ABG O2 Saturation 97.3 97.7 (95-98) % ABG Base Excess -10.1 L -15.1 L (-2.0-3.0) mmol/L Jesse Test Na Na ABG Potassium 3.4 L 1.8 L* (3.6-5.2) mmol/L A-a O2 Difference 590.0 595.0 mm/Hg Respiratory Index 6.5 6.3 Sodium 142.0 151.0 H (132-148) mmol/l Chloride 117.0 H 129.0 H (98-107) mmol/L Glucose 120 H 74 (65-105) mg/dl Lactate 3.7 H 2.8 H (0.7-2.1) mmol/L Mechanical Rate 22 FiO2 100.0 100.0 % Tidal Volume 500 500 PEEP 5 5 Crit Value Called To Dr martinez Crit Value Called By Miller [facility] Crit Value Read Back Y Blood Gas Notified Time 1750 Potassium (3.6-5.2) mmol/L Carbon Dioxide (22-30) mmol/L Anion Gap (10-20) BUN (7-17) mg/dL Creatinine (0.7-1.2) MG/DL Est GFR ( Amer) Est GFR (Non-Af Amer) Random Glucose (65-105) mg/dL Calcium (8.6-10.4) mg/dl Phosphorus (2.5-4.5) mg/dL Magnesium (1.6-2.3) mg/dL Total Bilirubin (0.2-1.3) mg/dL AST (14-36) U/L ALT (9-52) U/L Alkaline Phosphatase (38-126) U/L Total Protein (6.3-8.3) g/dL Albumin (3.5-5.0) g/dL Globulin (2.2-3.9) gm/dL Albumin/Globulin Ratio (1.0-2.1) Arterial Blood Potassium 3.4 L 1.8 L* (3.6-5.2) mmol/L 08/07/16 08/07/16 08/07/16 Range/Units 14:45 14:45 14:45 WBC 1.7 L* (4.8-10.8) K/uL RBC 4.16 (3.80-5.20) Mil/uL Hgb 13.0 D (11.0-16.0) g/dL Hct 39.9 (34.0-47.0) % MCV 96.0 (81.0-99.0) fL MCH 31.2 H (27.0-31.0) pg MCHC 32.5 L (33.0-37.0) g/dL RDW 14.0 (11.5-14.5) % Plt Count 220 (130-400) K/uL MPV 8.2 (7.2-11.7) fL Neut % (Auto) 55.4 (50.0-75.0) % Lymph % (Auto) 40.0 (20.0-40.0) % [place] % (Auto) 4.1 (0.0-10.0) % Eos % (Auto) 0.1 (0.0-4.0) % Baso % (Auto) 0.4 (0.0-2.0) % Neut # 1.0 L (1.8-7.0) K/uL Lymph # 0.7 L (1.0-4.3) K/uL [place] # 0.1 (0.0-0.8) K/uL Eos # 0.0 (0.0-0.7) K/uL Baso # 0.0 (0.0-0.2) K/uL Differential Comment Smear Path Review PT 15.0 H (9.7-12.2) SECONDS INR 1.3 APTT 37 H D (21-34) SECONDS Puncture Site pCO2 (35-45) mm/Hg pO2 (80-100) mm/Hg HCO3 (21-28) mmol/L ABG pH (7.35-7.45) ABG Total CO2 (22-28) mmol/L ABG O2 Saturation (95-98) % ABG Base Excess (-2.0-3.0) mmol/L Jesse Test ABG Potassium (3.6-5.2) mmol/L A-a O2 Difference mm/Hg Respiratory Index Sodium 138 (132-148) mmol/l Chloride 110 H (98-107) mmol/L Glucose (65-105) mg/dl Lactate (0.7-2.1) mmol/L Mechanical Rate FiO2 % Tidal Volume PEEP Crit Value Called To Crit Value Called By Crit Value Read Back Blood Gas Notified Time Potassium 3.2 L (3.6-5.2) mmol/L Carbon Dioxide 18 L (22-30) mmol/L Anion Gap 13 (10-20) BUN 41 H (7-17) mg/dL Creatinine 1.1 (0.7-1.2) MG/DL Est GFR ( Amer) 59 Est GFR (Non-Af Amer) 49 Random Glucose 111 H (65-105) mg/dL Calcium 7.8 L (8.6-10.4) mg/dl Phosphorus 4.1 (2.5-4.5) mg/dL Magnesium 1.4 L (1.6-2.3) mg/dL Total Bilirubin 1.7 H (0.2-1.3) mg/dL AST 37 H D (14-36) U/L ALT 37 (9-52) U/L Alkaline Phosphatase 132 H D (38-126) U/L Total Protein 3.3 L (6.3-8.3) g/dL Albumin 1.6 L D (3.5-5.0) g/dL Globulin 1.7 L (2.2-3.9) gm/dL Albumin/Globulin Ratio 0.9 L (1.0-2.1) Arterial Blood Potassium (3.6-5.2) mmol/L 08/07/16 Range/Units 14:21 WBC (4.8-10.8) K/uL RBC (3.80-5.20) Mil/uL Hgb (11.0-16.0) g/dL Hct (34.0-47.0) % MCV (81.0-99.0) fL MCH (27.0-31.0) pg MCHC (33.0-37.0) g/dL RDW (11.5-14.5) % Plt Count (130-400) K/uL MPV (7.2-11.7) fL Neut % (Auto) (50.0-75.0) % Lymph % (Auto) (20.0-40.0) % [place] % (Auto) (0.0-10.0) % Eos % (Auto) (0.0-4.0) % Baso % (Auto) (0.0-2.0) % Neut # (1.8-7.0) K/uL Lymph # (1.0-4.3) K/uL [place] # (0.0-0.8) K/uL Eos # (0.0-0.7) K/uL Baso # (0.0-0.2) K/uL Differential Comment Smear Path Review PT (9.7-12.2) SECONDS INR APTT (21-34) SECONDS Puncture Site A line pCO2 21 L (35-45) mm/Hg pO2 138 H (80-100) mm/Hg HCO3 13.5 L (21-28) mmol/L ABG pH 7.28 L (7.35-7.45) ABG Total CO2 10.5 L (22-28) mmol/L ABG O2 Saturation 98.9 H (95-98) % ABG Base Excess -14.7 L (-2.0-3.0) mmol/L Jesse Test Na ABG Potassium 1.6 L* (3.6-5.2) mmol/L A-a O2 Difference 549.0 mm/Hg Respiratory Index 4.0 Sodium 150.0 H (132-148) mmol/l Chloride 128.0 H (98-107) mmol/L Glucose 66 (65-105) mg/dl Lactate 2.0 (0.7-2.1) mmol/L Mechanical Rate 22 FiO2 100.0 % Tidal Volume 510 PEEP 5 Crit Value Called To Dr martinez Crit Value Called By Kizzy bolden assistant brand manager Crit Value Read Back Y Blood Gas Notified Time 1425 Potassium (3.6-5.2) mmol/L Carbon Dioxide (22-30) mmol/L Anion Gap (10-20) BUN (7-17) mg/dL Creatinine (0.7-1.2) MG/DL Est GFR ( Amer) Est GFR (Non-Af Amer) Random Glucose (65-105) mg/dL Calcium (8.6-10.4) mg/dl Phosphorus (2.5-4.5) mg/dL Magnesium (1.6-2.3) mg/dL Total Bilirubin (0.2-1.3) mg/dL AST (14-36) U/L ALT (9-52) U/L Alkaline Phosphatase (38-126) U/L Total Protein (6.3-8.3) g/dL Albumin (3.5-5.0) g/dL Globulin (2.2-3.9) gm/dL Albumin/Globulin Ratio (1.0-2.1) Arterial Blood Potassium 1.6 L* (3.6-5.2) mmol/L Laboratory Results - last 24 hr 08/07/16 08/07/16 08/07/16 14:21 14:45 14:45 WBC 1.7 L* RBC 4.16 Hgb 13.0 D Hct 39.9 MCV 96.0 MCH 31.2 H MCHC 32.5 L RDW 14.0 Plt Count 220 MPV 8.2 Neut % (Auto) 55.4 Lymph % (Auto) 40.0 [place] % (Auto) 4.1 Eos % (Auto) 0.1 Baso % (Auto) 0.4 Neut # 1.0 L Lymph # 0.7 L [place] # 0.1 Eos # 0.0 Baso # 0.0 Differential Comment Smear Path Review PT 15.0 H INR 1.3 APTT 37 H D Puncture Site A line pCO2 21 L pO2 138 H HCO3 13.5 L ABG pH 7.28 L ABG Total CO2 10.5 L ABG O2 Saturation 98.9 H ABG Base Excess -14.7 L Jesse Test Na ABG Potassium 1.6 L* A-a O2 Difference 549.0 Respiratory Index 4.0 Sodium 150.0 H Chloride 128.0 H Glucose 66 Lactate 2.0 Mechanical Rate 22 FiO2 100.0 Tidal Volume 510 PEEP 5 Crit Value Called To Dr martinez Crit Value Called By Kizzy bolden assistant brand manager Crit Value Read Back Y Blood Gas Notified Time 1425 Potassium Carbon Dioxide Anion Gap BUN Creatinine Est GFR ( Amer) Est GFR (Non-Af Amer) Random Glucose Calcium Phosphorus Magnesium Total Bilirubin AST ALT Alkaline Phosphatase Total Protein Albumin Globulin Albumin/Globulin Ratio Arterial Blood Potassium 1.6 L* 08/07/16 08/07/16 08/07/16 14:45 17:40 21:20 WBC RBC Hgb Hct MCV MCH MCHC RDW Plt Count MPV Neut % (Auto) Lymph % (Auto) [place] % (Auto) Eos % (Auto) Baso % (Auto) Neut # Lymph # [place] # Eos # Baso # Differential Comment Smear Path Review PT INR APTT Puncture Site A line A line pCO2 19 L* 26 L pO2 94 91 HCO3 13.1 L 17.0 L ABG pH 7.29 L 7.34 L ABG Total CO2 9.7 L 14.8 L ABG O2 Saturation 97.7 97.3 ABG Base Excess -15.1 L -10.1 L Jesse Test Na Na ABG Potassium 1.8 L* 3.4 L A-a O2 Difference 595.0 590.0 Respiratory Index 6.3 6.5 Sodium 138 151.0 H 142.0 Chloride 110 H 129.0 H 117.0 H Glucose 74 120 H Lactate 2.8 H 3.7 H Mechanical Rate 22 FiO2 100.0 100.0 Tidal Volume 500 500 PEEP 5 5 Crit Value Called To Dr martinez Crit Value Called By Miller [facility] Crit Value Read Back Y Blood Gas Notified Time 1750 Potassium 3.2 L Carbon Dioxide 18 L Anion Gap 13 BUN 41 H Creatinine 1.1 Est GFR ( Amer) 59 Est GFR (Non-Af Amer) 49 Random Glucose 111 H Calcium 7.8 L Phosphorus 4.1 Magnesium 1.4 L Total Bilirubin 1.7 H AST 37 H D ALT 37 Alkaline Phosphatase 132 H D Total Protein 3.3 L Albumin 1.6 L D Globulin 1.7 L Albumin/Globulin Ratio 0.9 L Arterial Blood Potassium 1.8 L* 3.4 L 08/07/16 08/07/16 08/08/16 22:31 22:31 03:54 WBC 2.4 L RBC 3.71 L Hgb 11.7 Hct 35.6 MCV 95.9 MCH 31.5 H MCHC 32.8 L RDW 14.0 Plt Count 174 MPV 8.1 Neut % (Auto) 64.5 Lymph % (Auto) 26.8 [place] % (Auto) 7.4 Eos % (Auto) 0.9 Baso % (Auto) 0.4 Neut # 1.6 L Lymph # 0.6 L [place] # 0.2 Eos # 0.0 Baso # 0.0 Differential Comment Smear Path Review PT INR APTT Puncture Site A-line l rad pCO2 23 L pO2 58 L HCO3 9.9 L* ABG pH 7.16 L* ABG Total CO2 8.9 L ABG O2 Saturation 88.3 L ABG Base Excess -18.7 L Jesse Test Na ABG Potassium 5.2 A-a O2 Difference 626.0 Respiratory Index 10.8 Sodium 140 137.0 Chloride 116 H 112.0 H Glucose 76 Lactate 8.4 H* Mechanical Rate 22 FiO2 100.0 Tidal Volume 500 PEEP 5 Crit Value Called To Laxmi rick rn Crit Value Called By Erna tang rt Crit Value Read Back Y Blood Gas Notified Time 408 Potassium 4.2 Carbon Dioxide 13 L Anion Gap 15 BUN 40 H Creatinine 1.3 H Est GFR ( Amer) 48 Est GFR (Non-Af Amer) 40 Random Glucose 114 H Calcium 6.9 L Phosphorus 2.7 Magnesium 1.9 Total Bilirubin 1.7 H AST 350 H D ALT 310 H D Alkaline Phosphatase 112 Total Protein 3.8 L Albumin 2.2 L D Globulin 1.6 L Albumin/Globulin Ratio 1.4 Arterial Blood Potassium 5.2 08/08/16 08/08/16 08/08/16 04:14 04:14 04:14 WBC 3.5 L RBC 3.78 L Hgb 12.1 Hct 36.6 MCV 96.8 MCH 32.0 H MCHC 33.0 RDW 14.6 H Plt Count 150 MPV 8.6 Neut % (Auto) 78.1 H Lymph % (Auto) 16.1 L [place] % (Auto) 5.4 Eos % (Auto) 0.3 Baso % (Auto) 0.1 Neut # 2.7 Lymph # 0.6 L [place] # 0.2 Eos # 0.0 Baso # 0.0 Differential Comment Smear Path Review PT 28.9 H D INR 2.5 D APTT 54 H D Puncture Site pCO2 pO2 HCO3 ABG pH ABG Total CO2 ABG O2 Saturation ABG Base Excess Jesse Test ABG Potassium A-a O2 Difference Respiratory Index Sodium 137 Chloride 112 H Glucose Lactate Mechanical Rate FiO2 Tidal Volume PEEP Crit Value Called To Crit Value Called By Crit Value Read Back Blood Gas Notified Time Potassium 5.2 Carbon Dioxide 8 L* D Anion Gap 22 H BUN 39 H Creatinine 1.6 H Est GFR ( Amer) 38 Est GFR (Non-Af Amer) 32 Random Glucose 75 Calcium 7.2 L Phosphorus 5.6 H Magnesium 1.9 Total Bilirubin 1.7 H AST 973 H D ALT 694 H D Alkaline Phosphatase 145 H D Total Protein 3.5 L Albumin 1.8 L Globulin 1.6 L Albumin/Globulin Ratio 1.1 Arterial Blood Potassium 08/08/16 08/08/16 08/08/16 06:15 09:19 09:20 WBC 3.7 L RBC 3.35 L Hgb 10.6 L Hct 33.2 L MCV 99.1 H D MCH 31.6 H MCHC 31.9 L RDW 15.1 H Plt Count 106 L D MPV 8.6 Neut % (Auto) 73.9 Lymph % (Auto) 20.5 [place] % (Auto) 5.2 Eos % (Auto) 0.3 Baso % (Auto) 0.1 Neut # 2.7 Lymph # 0.8 L [place] # 0.2 Eos # 0.0 Baso # 0.0 Differential Comment Smear Path Review PT INR APTT Puncture Site Odette Odette pCO2 45 32 L pO2 72 L 49 L HCO3 12.3 L 9.5 L* ABG pH 7.09 L* 7.10 L* ABG Total CO2 15.1 L 10.9 L ABG O2 Saturation 92.5 L 80.5 L ABG Base Excess -15.8 L -18.7 L Jesse Test Na Na ABG Potassium 5.4 H 4.2 A-a O2 Difference 585.0 624.0 Respiratory Index 8.1 12.7 Sodium 141.0 146.0 Chloride 111.0 H 114.0 H Glucose 53 L 20 L* D Lactate 11.7 H* 14.0 H* Mechanical Rate 28 28 FiO2 100.0 100.0 Tidal Volume 500 500 PEEP 5 5 Crit Value Called To Dr dulce short Crit Value Called By Doug jaime/rt Manjeet salmeron Crit Value Read Back Y Y Blood Gas Notified Time 625 922 Potassium Carbon Dioxide Anion Gap BUN Creatinine Est GFR ( Amer) Est GFR (Non-Af Amer) Random Glucose Calcium Phosphorus Magnesium Total Bilirubin AST ALT Alkaline Phosphatase Total Protein Albumin Globulin Albumin/Globulin Ratio Arterial Blood Potassium 5.4 H 4.2 08/08/16 09:20 WBC RBC Hgb Hct MCV MCH MCHC RDW Plt Count MPV Neut % (Auto) Lymph % (Auto) [place] % (Auto) Eos % (Auto) Baso % (Auto) Neut # Lymph # [place] # Eos # Baso # Differential Comment Smear Path Review PT INR APTT Puncture Site pCO2 pO2 HCO3 ABG pH ABG Total CO2 ABG O2 Saturation ABG Base Excess Jesse Test ABG Potassium A-a O2 Difference Respiratory Index Sodium 144 Chloride 108 H Glucose Lactate Mechanical Rate FiO2 Tidal Volume PEEP Crit Value Called To Crit Value Called By Crit Value Read Back Blood Gas Notified Time Potassium 4.4 Carbon Dioxide 14 L Anion Gap 26 H BUN 40 H Creatinine 1.9 H Est GFR ( Amer) 31 Est GFR (Non-Af Amer) 26 Random Glucose 23 L* D Calcium 7.5 L Phosphorus Magnesium Total Bilirubin 1.5 H AST 3640 H ALT 2628 H Alkaline Phosphatase 206 H D Total Protein 2.9 L Albumin 1.5 L Globulin 1.4 L Albumin/Globulin Ratio 1.1 Arterial Blood Potassium Critical Care Progress Note - Vent Settings MODE:: PRVC - Extremities/Vascular Does the Patient have a Central Venous Catheter?: Yes Does the Patient need a Central Venous Catheter?: Yes Does the Patient have a Mcpherson Catheter?: Yes Does the Patient need a Mcpherson Catheter?: Yes - Nutrition Nutrition: Nutrition Category Date Time Status NPO Diet [DIET] Diets 08/07/16 Breakfast Active Assessment/Plan - Assessment and Plan (Free Text) Plan: Patient Status: Neuro: Intubated and Sedated Cardio: Levophed and Dopamine DC Epinephrine Vasopressin Phenylephrine A-line in place Hypotension s/p code blue 8:36 and 10:46 Pulm: Intubated Desaturation prior to codes GI: NPO s/p ex lap with Dr. Kenney for perforated viscus Renal: Mixed metabolic and respiratory acidosis with underlying metabolic acidosis likely 2/2 to lactic acidosis Hematology: stable hemoglobin Musculoskeletal: sedated Genitourinary: mcpherson- oliguria ID: [id number] increasing lactate Case Discussed with Dr. Isadora Blackburn PGY1 - Date & Time Date: 08/08/16 Time: 12:42 <Gucci Muir - Last Filed: 08/08/16 13:15> CCU Objective - Vital Signs / Intake & Output Vital Signs (Last 4 hours): Vital Signs Pulse Resp BP Pulse Ox 08/08/16 11:10 0 L 08/08/16 11:00 0 L 08/08/16 10:50 28 H 08/08/16 10:40 28 L 28 H 17 L 08/08/16 10:32 50 L 29 H 34/27 L 08/08/16 10:30 82 28 H 08/08/16 10:25 114 H 28 H 66 L 08/08/16 10:20 137 H 28 H 56 L 08/08/16 10:10 165 H 27 H 116/48 L 65 L 08/08/16 10:00 107 H 17 49 L 08/08/16 09:50 53 L 28 H 08/08/16 09:40 109 H 28 H 08/08/16 09:39 110 H 28 H 66/37 L 08/08/16 09:30 111 H 28 H 08/08/16 09:25 110 H 28 H 58/38 L 08/08/16 09:20 109 H 28 H Intake and Output (Last 8hrs): Intake & Output 08/07/16 08/08/16 08/08/16 22:59 06:59 14:59 Intake Total 7725 6220.4 3476.60 Output Total 582 278 7480 Balance 7515 6090.4 1841.60 Weight 198 lb 14.4 oz Intake: IV 1010 1264 757.00 Intake, IV Amount 6415 4956.4 2719.6 Left Hand 2200 Left Wrist 300 R medial port 100 100 450 R proximal port 270 720 360 Right Distal Port 400 Internal Jugular Right Internal Jugular 270 480 339 Right Medial Port 2610 2750 1000 Internal Jugular Right Proximal Port 265 656.4 95.6 right hand 250 475 Albumin 300 Output: Gastric Amount 1500 Nares 1500 Drainage 180 90 135 Right Abdomen 180 90 135 Urine 30 40 0 Urethral (Mcpherson) 30 40 0 Other: # Bowel Movements 0 0 0 - Medications Active Medications: Active Medications Generic Name Dose Route Start Last Admin Trade Name Freq PRN Reason Stop Dose Admin Albumin Human 12.5 gm 08/08/16 10:00 08/08/16 10:24 Albumin Human 25% (12.5 Gm/50 Ml) IV 08/08/16 19:01 12.5 gm Q1 MARINA Administration Hydrocortisone Sodium Succinate 100 mg 08/08/16 16:00 Solu-Cortef IVP Q8H MARINA Hydromorphone HCl 1.5 mg 08/07/16 05:08 Dilaudid IVP Q3H PRN Pain, moderate (4-7) Piperacillin Sod/Tazobactam 100 mls @ 200 mls/hr 08/07/16 05:15 08/08/16 10: 17 Sod 3.375 gm/ Sodium Chloride IVPB 200 mls/hr Q6H MARINA Administration Metronidazole 500 mg in 100 mls @ 100 mls/hr 08/07/16 06:15 08/08/16 05:46 Flagyl IVPB 100 mls/hr Q8 MARINA Administration Phenylephrine HCl 30 mg/ 253 mls @ 10.12 mls/hr 08/07/16 15:56 08/08/16 10:32 Sodium Chloride IV 180 mcg/min .Q24H PRN 91.08 mls/hr TITRATE PER MD ORDER Administration Protocol 20 MCG/MIN Fluconazole 100 mls @ 100 mls/hr 08/08/16 10:00 08/08/16 10:17 Diflucan Iv 200 Mg/100 Ml Ns IVPB 100 mls/hr DAILY MARINA Administration Epinephrine HCl 1 mg/ Sodium 251 mls @ 15.06 mls/hr 08/08/16 06:41 08/08/16 10:31 Chloride IV 5 mcg/min .[id number] PRN 75.3 mls/hr TITRATE PER MD ORDER Administration Protocol 1 MCG/MIN Vasopressin 40 units/ Sodium 42 mls @ 0.63 mls/hr 08/08/16 07:45 08/08/16 08: 22 Chloride IV 0.01 units/min .Q24H MARINA 0.63 mls/hr Protocol Administration 0.01 UNITS/MIN Sodium Bicarbonate 150 meq/ 1,150 mls @ 125 mls/hr 08/08/16 08:00 08/08/16 09 :04 Sodium Chloride IV 125 mls/hr .[id number] MARINA Administration Morphine Sulfate 2 mg 08/07/16 06:07 08/08/16 01:02 Morphine IVP 2 mg Q6H PRN Administration Pain, moderate (4-7) Ondansetron HCl 4 mg 08/07/16 06:07 Zofran Inj IVP Q6H PRN Nausea/Vomiting Pantoprazole Sodium 40 mg 08/08/16 10:00 08/08/16 10:19 Protonix Inj IVP 40 mg DAILY MARINA Administration Pneumococcal Polyvalent Vaccine 0.5 ml 08/10/16 16:00 Pneumovax 23 Vaccine IM 08/10/16 16:01 .ONCE ONE Sodium Bicarbonate 50 meq 08/07/16 16:00 08/07/16 16:16 Sodium Bicarbonate (8.4%) 50 Meq Syringe IVP 08/08/16 16:01 50 meq Q5MIN MARINA Administration - Patient Studies Lab Studies: Microbiology Studies 08/07/16 16:00 Gram Stain - Final Peritoneal Fluid Body Fluid Culture - Preliminary Gram Negative Anthony Gram Negative Anthony#2 Gram Positive Cocci Lab Studies 08/08/16 08/08/16 08/08/16 Range/Units 09:20 09:20 09:19 WBC 3.7 L (4.8-10.8) K/uL RBC 3.35 L (3.80-5.20) Mil/uL Hgb 10.6 L (11.0-16.0) g/dL Hct 33.2 L (34.0-47.0) % MCV 99.1 H D (81.0-99.0) fL MCH 31.6 H (27.0-31.0) pg MCHC 31.9 L (33.0-37.0) g/dL RDW 15.1 H (11.5-14.5) % Plt Count 106 L D (130-400) K/uL MPV 8.6 (7.2-11.7) fL Neut % (Auto) 73.9 (50.0-75.0) % Lymph % (Auto) 20.5 (20.0-40.0) % [place] % (Auto) 5.2 (0.0-10.0) % Eos % (Auto) 0.3 (0.0-4.0) % Baso % (Auto) 0.1 (0.0-2.0) % Neut # 2.7 (1.8-7.0) K/uL Lymph # 0.8 L (1.0-4.3) K/uL [place] # 0.2 (0.0-0.8) K/uL Eos # 0.0 (0.0-0.7) K/uL Baso # 0.0 (0.0-0.2) K/uL Differential Comment Smear Path Review PT (9.7-12.2) SECONDS INR APTT (21-34) SECONDS Puncture Site [place] pCO2 32 L (35-45) mm/Hg pO2 49 L (80-100) mm/Hg HCO3 9.5 L* (21-28) mmol/L ABG pH 7.10 L* (7.35-7.45) ABG Total CO2 10.9 L (22-28) mmol/L ABG O2 Saturation 80.5 L (95-98) % ABG Base Excess -18.7 L (-2.0-3.0) mmol/L Jesse Test Na ABG Potassium 4.2 (3.6-5.2) mmol/L A-a O2 Difference 624.0 mm/Hg Respiratory Index 12.7 Sodium 144 146.0 (132-148) mmol/l Chloride 108 H 114.0 H (98-107) mmol/L Glucose 20 L* D (65-105) mg/dl Lactate 14.0 H* (0.7-2.1) mmol/L Mechanical Rate 28 FiO2 100.0 % Tidal Volume 500 PEEP 5 Crit Value Called To Dr. short Crit Value Called By Manjeet salmeron Crit Value Read Back Y Blood Gas Notified Time 922 Potassium 4.4 (3.6-5.2) mmol/L Carbon Dioxide 14 L (22-30) mmol/L Anion Gap 26 H (10-20) BUN 40 H (7-17) mg/dL Creatinine 1.9 H (0.7-1.2) MG/DL Est GFR ( Amer) 31 Est GFR (Non-Af Amer) 26 Random Glucose 23 L* D (65-105) mg/dL Calcium 7.5 L (8.6-10.4) mg/dl Phosphorus (2.5-4.5) mg/dL Magnesium (1.6-2.3) mg/dL Total Bilirubin 1.5 H (0.2-1.3) mg/dL AST 3640 H (14-36) U/L ALT 2628 H (9-52) U/L Alkaline Phosphatase 206 H D (38-126) U/L Total Protein 2.9 L (6.3-8.3) g/dL Albumin 1.5 L (3.5-5.0) g/dL Globulin 1.4 L (2.2-3.9) gm/dL Albumin/Globulin Ratio 1.1 (1.0-2.1) Arterial Blood Potassium 4.2 (3.6-5.2) mmol/L 08/08/16 08/08/16 08/08/16 Range/Units 06:15 04:14 04:14 WBC (4.8-10.8) K/uL RBC (3.80-5.20) Mil/uL Hgb (11.0-16.0) g/dL Hct (34.0-47.0) % MCV (81.0-99.0) fL MCH (27.0-31.0) pg MCHC (33.0-37.0) g/dL RDW (11.5-14.5) % Plt Count (130-400) K/uL MPV (7.2-11.7) fL Neut % (Auto) (50.0-75.0) % Lymph % (Auto) (20.0-40.0) % [place] % (Auto) (0.0-10.0) % Eos % (Auto) (0.0-4.0) % Baso % (Auto) (0.0-2.0) % Neut # (1.8-7.0) K/uL Lymph # (1.0-4.3) K/uL [place] # (0.0-0.8) K/uL Eos # (0.0-0.7) K/uL Baso # (0.0-0.2) K/uL Differential Comment Smear Path Review PT 28.9 H D (9.7-12.2) SECONDS INR 2.5 D APTT 54 H D (21-34) SECONDS Puncture Site [place] pCO2 45 (35-45) mm/Hg pO2 72 L (80-100) mm/Hg HCO3 12.3 L (21-28) mmol/L ABG pH 7.09 L* (7.35-7.45) ABG Total CO2 15.1 L (22-28) mmol/L ABG O2 Saturation 92.5 L (95-98) % ABG Base Excess -15.8 L (-2.0-3.0) mmol/L Jesse Test Na ABG Potassium 5.4 H (3.6-5.2) mmol/L A-a O2 Difference 585.0 mm/Hg Respiratory Index 8.1 Sodium 141.0 137 (132-148) mmol/l Chloride 111.0 H 112 H (98-107) mmol/L Glucose 53 L (65-105) mg/dl Lactate 11.7 H* (0.7-2.1) mmol/L Mechanical Rate 28 FiO2 100.0 % Tidal Volume 500 PEEP 5 Crit Value Called To Dr cardona Crit Value Called By Doug jaime/rt Crit Value Read Back Y Blood Gas Notified Time 625 Potassium 5.2 (3.6-5.2) mmol/L Carbon Dioxide 8 L* D (22-30) mmol/L Anion Gap 22 H (10-20) BUN 39 H (7-17) mg/dL Creatinine 1.6 H (0.7-1.2) MG/DL Est GFR ( Amer) 38 Est GFR (Non-Af Amer) 32 Random Glucose 75 (65-105) mg/dL Calcium 7.2 L (8.6-10.4) mg/dl Phosphorus 5.6 H (2.5-4.5) mg/dL Magnesium 1.9 (1.6-2.3) mg/dL Total Bilirubin 1.7 H (0.2-1.3) mg/dL AST 973 H D (14-36) U/L ALT 694 H D (9-52) U/L Alkaline Phosphatase 145 H D (38-126) U/L Total Protein 3.5 L (6.3-8.3) g/dL Albumin 1.8 L (3.5-5.0) g/dL Globulin 1.6 L (2.2-3.9) gm/dL Albumin/Globulin Ratio 1.1 (1.0-2.1) Arterial Blood Potassium 5.4 H (3.6-5.2) mmol/L 08/08/16 08/08/16 08/07/16 Range/Units 04:14 03:54 22:31 WBC 3.5 L (4.8-10.8) K/uL RBC 3.78 L (3.80-5.20) Mil/uL Hgb 12.1 (11.0-16.0) g/dL Hct 36.6 (34.0-47.0) % MCV 96.8 (81.0-99.0) fL MCH 32.0 H (27.0-31.0) pg MCHC 33.0 (33.0-37.0) g/dL RDW 14.6 H (11.5-14.5) % Plt Count 150 (130-400) K/uL MPV 8.6 (7.2-11.7) fL Neut % (Auto) 78.1 H (50.0-75.0) % Lymph % (Auto) 16.1 L (20.0-40.0) % [place] % (Auto) 5.4 (0.0-10.0) % Eos % (Auto) 0.3 (0.0-4.0) % Baso % (Auto) 0.1 (0.0-2.0) % Neut # 2.7 (1.8-7.0) K/uL Lymph # 0.6 L (1.0-4.3) K/uL [place] # 0.2 (0.0-0.8) K/uL Eos # 0.0 (0.0-0.7) K/uL Baso # 0.0 (0.0-0.2) K/uL Differential Comment Smear Path Review PT (9.7-12.2) SECONDS INR APTT (21-34) SECONDS Puncture Site A-line l rad pCO2 23 L (35-45) mm/Hg pO2 58 L (80-100) mm/Hg HCO3 9.9 L* (21-28) mmol/L ABG pH 7.16 L* (7.35-7.45) ABG Total CO2 8.9 L (22-28) mmol/L ABG O2 Saturation 88.3 L (95-98) % ABG Base Excess -18.7 L (-2.0-3.0) mmol/L Jesse Test Na ABG Potassium 5.2 (3.6-5.2) mmol/L A-a O2 Difference 626.0 mm/Hg Respiratory Index 10.8 Sodium 137.0 140 (132-148) mmol/l Chloride 112.0 H 116 H (98-107) mmol/L Glucose 76 (65-105) mg/dl Lactate 8.4 H* (0.7-2.1) mmol/L Mechanical Rate 22 FiO2 100.0 % Tidal Volume 500 PEEP 5 Crit Value Called To Laxmi rick rn Crit Value Called By Erna tang rt Crit Value Read Back Y Blood Gas Notified Time 408 Potassium 4.2 (3.6-5.2) mmol/L Carbon Dioxide 13 L (22-30) mmol/L Anion Gap 15 (10-20) BUN 40 H (7-17) mg/dL Creatinine 1.3 H (0.7-1.2) MG/DL Est GFR ( Amer) 48 Est GFR (Non-Af Amer) 40 Random Glucose 114 H (65-105) mg/dL Calcium 6.9 L (8.6-10.4) mg/dl Phosphorus 2.7 (2.5-4.5) mg/dL Magnesium 1.9 (1.6-2.3) mg/dL Total Bilirubin 1.7 H (0.2-1.3) mg/dL AST 350 H D (14-36) U/L ALT 310 H D (9-52) U/L Alkaline Phosphatase 112 (38-126) U/L Total Protein 3.8 L (6.3-8.3) g/dL Albumin 2.2 L D (3.5-5.0) g/dL Globulin 1.6 L (2.2-3.9) gm/dL Albumin/Globulin Ratio 1.4 (1.0-2.1) Arterial Blood Potassium 5.2 (3.6-5.2) mmol/L 08/07/16 08/07/16 08/07/16 Range/Units 22:31 21:20 17:40 WBC 2.4 L (4.8-10.8) K/uL RBC 3.71 L (3.80-5.20) Mil/uL Hgb 11.7 (11.0-16.0) g/dL Hct 35.6 (34.0-47.0) % MCV 95.9 (81.0-99.0) fL MCH 31.5 H (27.0-31.0) pg MCHC 32.8 L (33.0-37.0) g/dL RDW 14.0 (11.5-14.5) % Plt Count 174 (130-400) K/uL MPV 8.1 (7.2-11.7) fL Neut % (Auto) 64.5 (50.0-75.0) % Lymph % (Auto) 26.8 (20.0-40.0) % [place] % (Auto) 7.4 (0.0-10.0) % Eos % (Auto) 0.9 (0.0-4.0) % Baso % (Auto) 0.4 (0.0-2.0) % Neut # 1.6 L (1.8-7.0) K/uL Lymph # 0.6 L (1.0-4.3) K/uL [place] # 0.2 (0.0-0.8) K/uL Eos # 0.0 (0.0-0.7) K/uL Baso # 0.0 (0.0-0.2) K/uL Differential Comment Smear Path Review PT (9.7-12.2) SECONDS INR APTT (21-34) SECONDS Puncture Site A line A line pCO2 26 L 19 L* (35-45) mm/Hg pO2 91 94 (80-100) mm/Hg HCO3 17.0 L 13.1 L (21-28) mmol/L ABG pH 7.34 L 7.29 L (7.35-7.45) ABG Total CO2 14.8 L 9.7 L (22-28) mmol/L ABG O2 Saturation 97.3 97.7 (95-98) % ABG Base Excess -10.1 L -15.1 L (-2.0-3.0) mmol/L Jesse Test Na Na ABG Potassium 3.4 L 1.8 L* (3.6-5.2) mmol/L A-a O2 Difference 590.0 595.0 mm/Hg Respiratory Index 6.5 6.3 Sodium 142.0 151.0 H (132-148) mmol/l Chloride 117.0 H 129.0 H (98-107) mmol/L Glucose 120 H 74 (65-105) mg/dl Lactate 3.7 H 2.8 H (0.7-2.1) mmol/L Mechanical Rate 22 FiO2 100.0 100.0 % Tidal Volume 500 500 PEEP 5 5 Crit Value Called To Dr martinez Crit Value Called By Miller [facility] Crit Value Read Back Y Blood Gas Notified Time 1750 Potassium (3.6-5.2) mmol/L Carbon Dioxide (22-30) mmol/L Anion Gap (10-20) BUN (7-17) mg/dL Creatinine (0.7-1.2) MG/DL Est GFR ( Amer) Est GFR (Non-Af Amer) Random Glucose (65-105) mg/dL Calcium (8.6-10.4) mg/dl Phosphorus (2.5-4.5) mg/dL Magnesium (1.6-2.3) mg/dL Total Bilirubin (0.2-1.3) mg/dL AST (14-36) U/L ALT (9-52) U/L Alkaline Phosphatase (38-126) U/L Total Protein (6.3-8.3) g/dL Albumin (3.5-5.0) g/dL Globulin (2.2-3.9) gm/dL Albumin/Globulin Ratio (1.0-2.1) Arterial Blood Potassium 3.4 L 1.8 L* (3.6-5.2) mmol/L 08/07/16 08/07/16 08/07/16 Range/Units 14:45 14:45 14:45 WBC 1.7 L* (4.8-10.8) K/uL RBC 4.16 (3.80-5.20) Mil/uL Hgb 13.0 D (11.0-16.0) g/dL Hct 39.9 (34.0-47.0) % MCV 96.0 (81.0-99.0) fL MCH 31.2 H (27.0-31.0) pg MCHC 32.5 L (33.0-37.0) g/dL RDW 14.0 (11.5-14.5) % Plt Count 220 (130-400) K/uL MPV 8.2 (7.2-11.7) fL Neut % (Auto) 55.4 (50.0-75.0) % Lymph % (Auto) 40.0 (20.0-40.0) % [place] % (Auto) 4.1 (0.0-10.0) % Eos % (Auto) 0.1 (0.0-4.0) % Baso % (Auto) 0.4 (0.0-2.0) % Neut # 1.0 L (1.8-7.0) K/uL Lymph # 0.7 L (1.0-4.3) K/uL [place] # 0.1 (0.0-0.8) K/uL Eos # 0.0 (0.0-0.7) K/uL Baso # 0.0 (0.0-0.2) K/uL Differential Comment Smear Path Review PT 15.0 H (9.7-12.2) SECONDS INR 1.3 APTT 37 H D (21-34) SECONDS Puncture Site pCO2 (35-45) mm/Hg pO2 (80-100) mm/Hg HCO3 (21-28) mmol/L ABG pH (7.35-7.45) ABG Total CO2 (22-28) mmol/L ABG O2 Saturation (95-98) % ABG Base Excess (-2.0-3.0) mmol/L Jesse Test ABG Potassium (3.6-5.2) mmol/L A-a O2 Difference mm/Hg Respiratory Index Sodium 138 (132-148) mmol/l Chloride 110 H (98-107) mmol/L Glucose (65-105) mg/dl Lactate (0.7-2.1) mmol/L Mechanical Rate FiO2 % Tidal Volume PEEP Crit Value Called To Crit Value Called By Crit Value Read Back Blood Gas Notified Time Potassium 3.2 L (3.6-5.2) mmol/L Carbon Dioxide 18 L (22-30) mmol/L Anion Gap 13 (10-20) BUN 41 H (7-17) mg/dL Creatinine 1.1 (0.7-1.2) MG/DL Est GFR ( Amer) 59 Est GFR (Non-Af Amer) 49 Random Glucose 111 H (65-105) mg/dL Calcium 7.8 L (8.6-10.4) mg/dl Phosphorus 4.1 (2.5-4.5) mg/dL Magnesium 1.4 L (1.6-2.3) mg/dL Total Bilirubin 1.7 H (0.2-1.3) mg/dL AST 37 H D (14-36) U/L ALT 37 (9-52) U/L Alkaline Phosphatase 132 H D (38-126) U/L Total Protein 3.3 L (6.3-8.3) g/dL Albumin 1.6 L D (3.5-5.0) g/dL Globulin 1.7 L (2.2-3.9) gm/dL Albumin/Globulin Ratio 0.9 L (1.0-2.1) Arterial Blood Potassium (3.6-5.2) mmol/L 08/07/16 Range/Units 14:21 WBC (4.8-10.8) K/uL RBC (3.80-5.20) Mil/uL Hgb (11.0-16.0) g/dL Hct (34.0-47.0) % MCV (81.0-99.0) fL MCH (27.0-31.0) pg MCHC (33.0-37.0) g/dL RDW (11.5-14.5) % Plt Count (130-400) K/uL MPV (7.2-11.7) fL Neut % (Auto) (50.0-75.0) % Lymph % (Auto) (20.0-40.0) % [place] % (Auto) (0.0-10.0) % Eos % (Auto) (0.0-4.0) % Baso % (Auto) (0.0-2.0) % Neut # (1.8-7.0) K/uL Lymph # (1.0-4.3) K/uL [place] # (0.0-0.8) K/uL Eos # (0.0-0.7) K/uL Baso # (0.0-0.2) K/uL Differential Comment Smear Path Review PT (9.7-12.2) SECONDS INR APTT (21-34) SECONDS Puncture Site A line pCO2 21 L (35-45) mm/Hg pO2 138 H (80-100) mm/Hg HCO3 13.5 L (21-28) mmol/L ABG pH 7.28 L (7.35-7.45) ABG Total CO2 10.5 L (22-28) mmol/L ABG O2 Saturation 98.9 H (95-98) % ABG Base Excess -14.7 L (-2.0-3.0) mmol/L Jesse Test Na ABG Potassium 1.6 L* (3.6-5.2) mmol/L A-a O2 Difference 549.0 mm/Hg Respiratory Index 4.0 Sodium 150.0 H (132-148) mmol/l Chloride 128.0 H (98-107) mmol/L Glucose 66 (65-105) mg/dl Lactate 2.0 (0.7-2.1) mmol/L Mechanical Rate 22 FiO2 100.0 % Tidal Volume 510 PEEP 5 Crit Value Called To Dr martinez Crit Value Called By Kizzy bolden assistant brand manager Crit Value Read Back Y Blood Gas Notified Time 1425 Potassium (3.6-5.2) mmol/L Carbon Dioxide (22-30) mmol/L Anion Gap (10-20) BUN (7-17) mg/dL Creatinine (0.7-1.2) MG/DL Est GFR ( Amer) Est GFR (Non-Af Amer) Random Glucose (65-105) mg/dL Calcium (8.6-10.4) mg/dl Phosphorus (2.5-4.5) mg/dL Magnesium (1.6-2.3) mg/dL Total Bilirubin (0.2-1.3) mg/dL AST (14-36) U/L ALT (9-52) U/L Alkaline Phosphatase (38-126) U/L Total Protein (6.3-8.3) g/dL Albumin (3.5-5.0) g/dL Globulin (2.2-3.9) gm/dL Albumin/Globulin Ratio (1.0-2.1) Arterial Blood Potassium 1.6 L* (3.6-5.2) mmol/L Laboratory Results - last 24 hr 08/07/16 08/07/16 08/07/16 14:21 14:45 14:45 WBC 1.7 L* RBC 4.16 Hgb 13.0 D Hct 39.9 MCV 96.0 MCH 31.2 H MCHC 32.5 L RDW 14.0 Plt Count 220 MPV 8.2 Neut % (Auto) 55.4 Lymph % (Auto) 40.0 [place] % (Auto) 4.1 Eos % (Auto) 0.1 Baso % (Auto) 0.4 Neut # 1.0 L Lymph # 0.7 L [place] # 0.1 Eos # 0.0 Baso # 0.0 Differential Comment Smear Path Review PT 15.0 H INR 1.3 APTT 37 H D Puncture Site A line pCO2 21 L pO2 138 H HCO3 13.5 L ABG pH 7.28 L ABG Total CO2 10.5 L ABG O2 Saturation 98.9 H ABG Base Excess -14.7 L Jesse Test Na ABG Potassium 1.6 L* A-a O2 Difference 549.0 Respiratory Index 4.0 Sodium 150.0 H Chloride 128.0 H Glucose 66 Lactate 2.0 Mechanical Rate 22 FiO2 100.0 Tidal Volume 510 PEEP 5 Crit Value Called To Dr martinez Crit Value Called By Kizzy bolden assistant brand manager Crit Value Read Back Y Blood Gas Notified Time 1425 Potassium Carbon Dioxide Anion Gap BUN Creatinine Est GFR ( Amer) Est GFR (Non-Af Amer) Random Glucose Calcium Phosphorus Magnesium Total Bilirubin AST ALT Alkaline Phosphatase Total Protein Albumin Globulin Albumin/Globulin Ratio Arterial Blood Potassium 1.6 L* 08/07/16 08/07/16 08/07/16 14:45 17:40 21:20 WBC RBC Hgb Hct MCV MCH MCHC RDW Plt Count MPV Neut % (Auto) Lymph % (Auto) [place] % (Auto) Eos % (Auto) Baso % (Auto) Neut # Lymph # [place] # Eos # Baso # Differential Comment Smear Path Review PT INR APTT Puncture Site A line A line pCO2 19 L* 26 L pO2 94 91 HCO3 13.1 L 17.0 L ABG pH 7.29 L 7.34 L ABG Total CO2 9.7 L 14.8 L ABG O2 Saturation 97.7 97.3 ABG Base Excess -15.1 L -10.1 L Jesse Test Na Na ABG Potassium 1.8 L* 3.4 L A-a O2 Difference 595.0 590.0 Respiratory Index 6.3 6.5 Sodium 138 151.0 H 142.0 Chloride 110 H 129.0 H 117.0 H Glucose 74 120 H Lactate 2.8 H 3.7 H Mechanical Rate 22 FiO2 100.0 100.0 Tidal Volume 500 500 PEEP 5 5 Crit Value Called To Dr martinez Crit Value Called By Miller [facility] Crit Value Read Back Y Blood Gas Notified Time 1750 Potassium 3.2 L Carbon Dioxide 18 L Anion Gap 13 BUN 41 H Creatinine 1.1 Est GFR ( Amer) 59 Est GFR (Non-Af Amer) 49 Random Glucose 111 H Calcium 7.8 L Phosphorus 4.1 Magnesium 1.4 L Total Bilirubin 1.7 H AST 37 H D ALT 37 Alkaline Phosphatase 132 H D Total Protein 3.3 L Albumin 1.6 L D Globulin 1.7 L Albumin/Globulin Ratio 0.9 L Arterial Blood Potassium 1.8 L* 3.4 L 08/07/16 08/07/16 08/08/16 22:31 22:31 03:54 WBC 2.4 L RBC 3.71 L Hgb 11.7 Hct 35.6 MCV 95.9 MCH 31.5 H MCHC 32.8 L RDW 14.0 Plt Count 174 MPV 8.1 Neut % (Auto) 64.5 Lymph % (Auto) 26.8 [place] % (Auto) 7.4 Eos % (Auto) 0.9 Baso % (Auto) 0.4 Neut # 1.6 L Lymph # 0.6 L [place] # 0.2 Eos # 0.0 Baso # 0.0 Differential Comment Smear Path Review PT INR APTT Puncture Site A-line l rad pCO2 23 L pO2 58 L HCO3 9.9 L* ABG pH 7.16 L* ABG Total CO2 8.9 L ABG O2 Saturation 88.3 L ABG Base Excess -18.7 L Jesse Test Na ABG Potassium 5.2 A-a O2 Difference 626.0 Respiratory Index 10.8 Sodium 140 137.0 Chloride 116 H 112.0 H Glucose 76 Lactate 8.4 H* Mechanical Rate 22 FiO2 100.0 Tidal Volume 500 PEEP 5 Crit Value Called To Laxmi rick rn Crit Value Called By Erna tang rt Crit Value Read Back Y Blood Gas Notified Time 408 Potassium 4.2 Carbon Dioxide 13 L Anion Gap 15 BUN 40 H Creatinine 1.3 H Est GFR ( Amer) 48 Est GFR (Non-Af Amer) 40 Random Glucose 114 H Calcium 6.9 L Phosphorus 2.7 Magnesium 1.9 Total Bilirubin 1.7 H AST 350 H D ALT 310 H D Alkaline Phosphatase 112 Total Protein 3.8 L Albumin 2.2 L D Globulin 1.6 L Albumin/Globulin Ratio 1.4 Arterial Blood Potassium 5.2 08/08/16 08/08/16 08/08/16 04:14 04:14 04:14 WBC 3.5 L RBC 3.78 L Hgb 12.1 Hct 36.6 MCV 96.8 MCH 32.0 H MCHC 33.0 RDW 14.6 H Plt Count 150 MPV 8.6 Neut % (Auto) 78.1 H Lymph % (Auto) 16.1 L [place] % (Auto) 5.4 Eos % (Auto) 0.3 Baso % (Auto) 0.1 Neut # 2.7 Lymph # 0.6 L [place] # 0.2 Eos # 0.0 Baso # 0.0 Differential Comment Smear Path Review PT 28.9 H D INR 2.5 D APTT 54 H D Puncture Site pCO2 pO2 HCO3 ABG pH ABG Total CO2 ABG O2 Saturation ABG Base Excess Jesse Test ABG Potassium A-a O2 Difference Respiratory Index Sodium 137 Chloride 112 H Glucose Lactate Mechanical Rate FiO2 Tidal Volume PEEP Crit Value Called To Crit Value Called By Crit Value Read Back Blood Gas Notified Time Potassium 5.2 Carbon Dioxide 8 L* D Anion Gap 22 H BUN 39 H Creatinine 1.6 H Est GFR ( Amer) 38 Est GFR (Non-Af Amer) 32 Random Glucose 75 Calcium 7.2 L Phosphorus 5.6 H Magnesium 1.9 Total Bilirubin 1.7 H AST 973 H D ALT 694 H D Alkaline Phosphatase 145 H D Total Protein 3.5 L Albumin 1.8 L Globulin 1.6 L Albumin/Globulin Ratio 1.1 Arterial Blood Potassium 08/08/16 08/08/16 08/08/16 06:15 09:19 09:20 WBC 3.7 L RBC 3.35 L Hgb 10.6 L Hct 33.2 L MCV 99.1 H D MCH 31.6 H MCHC 31.9 L RDW 15.1 H Plt Count 106 L D MPV 8.6 Neut % (Auto) 73.9 Lymph % (Auto) 20.5 [place] % (Auto) 5.2 Eos % (Auto) 0.3 Baso % (Auto) 0.1 Neut # 2.7 Lymph # 0.8 L [place] # 0.2 Eos # 0.0 Baso # 0.0 Differential Comment Smear Path Review PT INR APTT Puncture Site [place] pCO2 45 32 L pO2 72 L 49 L HCO3 12.3 L 9.5 L* ABG pH 7.09 L* 7.10 L* ABG Total CO2 15.1 L 10.9 L ABG O2 Saturation 92.5 L 80.5 L ABG Base Excess -15.8 L -18.7 L Jesse Test Na Na ABG Potassium 5.4 H 4.2 A-a O2 Difference 585.0 624.0 Respiratory Index 8.1 12.7 Sodium 141.0 146.0 Chloride 111.0 H 114.0 H Glucose 53 L 20 L* D Lactate 11.7 H* 14.0 H* Mechanical Rate 28 28 FiO2 100.0 100.0 Tidal Volume 500 500 PEEP 5 5 Crit Value Called To Dr dulce short Crit Value Called By Doug jaime/rt Manjeet salmeron Crit Value Read Back Y Y Blood Gas Notified Time 714 922 Potassium Carbon Dioxide Anion Gap BUN Creatinine Est GFR ( Amer) Est GFR (Non-Af Amer) Random Glucose Calcium Phosphorus Magnesium Total Bilirubin AST ALT Alkaline Phosphatase Total Protein Albumin Globulin Albumin/Globulin Ratio Arterial Blood Potassium 5.4 H 4.2 08/08/16 09:20 WBC RBC Hgb Hct MCV MCH MCHC RDW Plt Count MPV Neut % (Auto) Lymph % (Auto) [place] % (Auto) Eos % (Auto) Baso % (Auto) Neut # Lymph # [place] # Eos # Baso # Differential Comment Smear Path Review PT INR APTT Puncture Site pCO2 pO2 HCO3 ABG pH ABG Total CO2 ABG O2 Saturation ABG Base Excess Jesse Test ABG Potassium A-a O2 Difference Respiratory Index Sodium 144 Chloride 108 H Glucose Lactate Mechanical Rate FiO2 Tidal Volume PEEP Crit Value Called To Crit Value Called By Crit Value Read Back Blood Gas Notified Time Potassium 4.4 Carbon Dioxide 14 L Anion Gap 26 H BUN 40 H Creatinine 1.9 H Est GFR ( Amer) 31 Est GFR (Non-Af Amer) 26 Random Glucose 23 L* D Calcium 7.5 L Phosphorus Magnesium Total Bilirubin 1.5 H AST 3640 H ALT 2628 H Alkaline Phosphatase 206 H D Total Protein 2.9 L Albumin 1.5 L Globulin 1.4 L Albumin/Globulin Ratio 1.1 Arterial Blood Potassium Critical Care Progress Note - Nutrition Nutrition: Nutrition Category Date Time Status NPO Diet [DIET] Diets 08/07/16 Breakfast Active Attending/Attestation - Attestation I have personally seen and examined this patient.: Yes I have fully participated in the care of the patient.: Yes I have reviewed all pertinent clinical information: Yes Notes (Text): 08/08/16 13:11 I have seen and examined the patient. Medical records, lab studies, and imaging were reviewed by me and a management plan was formulated on multidisciplinary rounds with resident Dr. Blackburn. I agree with their above documented assessment and plan. The patient today after multiple resuscitation efforts. She was in septic shock with intractable hypotension despite multiple pressors, stress dose steroids and maximal therapy. Family, sister in [place] was informed. Primary attending also informed. forensic examiner released her case. Critical Care Time 60 minutes. Multi-disciplinary rounds were performed with house staff, nursing, speech therapy, respiratory therapy, pharmacy and nutrition with integrated input from the primary team/attending and other consulting services. The documented time is cumulative and includes review of patient data/exams/labs/chart review and examination of the patient on rounds and throughout the day; time is exclusive of any procedures or teaching time.
--- NOTE | 2016-08-08 21:07 | OP ---
PROCEDURE DATE: 08/08/2016 PREOPERATIVE DIAGNOSES: 1. Acute abdomen. 2. Possible colon perforation. POSTOPERATIVE DIAGNOSES: 1. Sigmoid perforation with a Hinchey IV classification. 2. Severe feculent peritonitis. PROCEDURE DONE: 1. Exploratory laparotomy. 2. Flaco procedure. 3. Drainage of feculent intra-abdominal multiple collection. 4. On-Q pain catheter pump placement. SURGEON: Tacho Kenney MD MACHINE OPERATOR HAY STACKER: JONI Angela; Juventino Domingo, PGY-1 resident. ANESTHESIA: General endotracheal tube anesthesia. ESTIMATED BLOOD LOSS: Around 150 mL. DRAINS: A 19-Romansh Adria drain was placed. COMPLICATIONS: None. INTRAOPERATIVE FINDINGS: The patient had feculent peritonitis, Hinchey IV classification with severe peritonitis. INTRAOPERATIVE STEPS: This is a 76-year-old female who was diagnosed with acute abdomen and with a possible colonic perforation. The patient was seen and examined at the bedside and the patient was consented for exploratory laparotomy, possible colon resection, possible ostomy. Brought to the OR, placed supine on the operating table. After the induction of the anesthesia, the abdomen was prepped and draped in a usual sterile fashion. The lower midline laparotomy was done. After incising skin and subcutaneous tissue and the fascia, peritoneal cavity was entered. The patient found to have the feculent peritonitis and the abdominal cavity was completely washed out and cleaned and patient found to have perforation in the sigmoid colon. The sigmoid was resected at rectosigmoid junction as well as at the mid sigmoid and a 19-Romansh Adria drain was placed and after proper cleaning of peritoneal cavity with 5 liters of fluid, the descending colon was mobilized and the incision was made in the left mid abdomen and the end of the colon was brought out through that defect to create the colostomy. Now, the 19-Romansh Adria drain was placed and after proper hemostasis and after proper suctioning of all the remaining collection, the peritoneal cavity was closed and On-Q pain catheter pump was placed and after closure of the abdominal cavity, the skin was closed with evan and now, the colostomy site was matured and the stoma was sutured to the surrounding fascia. The colostomy stoma appliance was applied and after that, patient was kept intubated and was sent to the ICU for further care. The patient had a blood pressure of 90s/60s and patient was started on a low dose of Levophed intraoperatively. The count of instrument was correct. The patient tolerated procedure well. Tacho Kenney MD cc: [id number] TT: 08/08/2016 21:07:06 sn [id number]
--- NOTE | 2016-08-08 23:20 | CARD ---
APPROVED REPORT EKG Measurement Heart [id number] <Conclusion> Normal sinus rhythm Low voltage QRS Septal infarct, age undetermined Inferior infarct, age undetermined Abnormal ECG
[2016-08-10] MEDS ORDERED: Pneumococcal 23-Valent Vaccine IM ONE (16:00)
== END 2016-08-08 10:46 | DRG 853 ==
LOC: C.ER 00:21 → C.9E 05:22 → C.9I 06:55
PROVIDERS: ADMIT Internal Medicine; ATTEND Internal Medicine
PROC: 0DTN0ZZ Resection of Sigmoid Colon, Open Approach (ICD-10-PCS; principal; 2016-08-08)
PROC: 0D1M0Z4 Bypass Descending Colon to Cutaneous, Open Approach (ICD-10-PCS; 2016-08-08)
PROC: 5A1935Z Respiratory Ventilation, Less than 24 Consecutive Hours (ICD-10-PCS; 2016-08-08)
DX: A41.9 Sepsis, unspecified organism (principal); K63.1 Perforation of intestine (nontraumatic); K65.0 Generalized (acute) peritonitis; R65.21 Severe sepsis with septic shock; K72.00 Acute and subacute hepatic failure without coma; J69.0 Pneumonitis due to inhalation of food and vomit; I46.9 Cardiac arrest, cause unspecified; E87.4 Mixed disorder of acid-base balance; I10 Essential (primary) hypertension; K52.9 Noninfective gastroenteritis and colitis, unspecified; K80.20 Calculus of gallbladder without cholecystitis without obstruction; K59.09 Other constipation; E78.5 Hyperlipidemia, unspecified; E78.00 Pure hypercholesterolemia, unspecified; H40.9 Unspecified glaucoma; Z90.49 Acquired absence of other specified parts of digestive tract; Z90.710 Acquired absence of both cervix and uterus